=== PATIENT | female | born 1980 | race Caucasian/White ===

== ENCOUNTER → 2016-04-18 | Outpatient (CLI) | payer OTHER ==
[~2016-04-18] MED LIST: AMOX500T3 PO; AMPH10TA2 PO; AMPH20TA2 PO; BUPR-102 PO; BUPR-79 PO; CHLO100T8 PO; CHLO1TAB45 PO; CLC100 PO; DIAZ2TAB PO; DPKSR/500 PO; DRGTP25 EXT; HYDR-4079 PO; MELO15TA4 PO; MRLP527 PO; NRN600 PO; ONDA-63 PO; ONDA8TAB6 PO; PRED10TA PO; PROP20TA67 PO; SNG10 PO; TIZA4CAP PO; TRAZ50TA35 PO; VARE1PAK15 PO; VLM5CL PO; VNTHFA/IN INH; ZOLP10TA PO; ZOLP10TA6 PO; [UNRECOGNIZED DRUG - CODE] PO; [UNRECOGNIZED DRUG - CODE] PO; [UNRECOGNIZED DRUG - CODE] PO
[2016-04-18 16:56] LABS: BASO % 0.2 %; BASO ABS # 0.01 K/uL (0-0.2); COMPLETE YES; HEMATOCRIT 39.3 % (37-47); LYMPH % 35.8 %; LYMPH ABS # 1.92 K/uL (1.2-3.4); MEAN CELL VOLUME 86.2 fL (80-100); MEAN CORPUSCULAR HEMOGLOBIN 29.2 pg (25-34); MEAN CORPUSCULAR HGB CONC 33.8 g/dl (32-36); MEAN PLATELET VOLUME 11.6 fL (7.4-10.4); MONO % 6.5 %; NEUT % 57.5 %; PLATELET COUNT 211 K/uL (130-400); RED BLOOD COUNT 4.56 M/uL (4.2-5.4); WHITE BLOOD COUNT 5.36 K/uL (4.8-10.8)
[2016-04-18 17:09] LABS: ALT/SGPT 16 U/L (12-78); BLOOD UREA NITROGEN 10 mg/dl (7-18); BUN/CREATININE RATIO 11.4 (10-20); CALCIUM 9.1 mg/dl (8.5-10.1); CARBON DIOXIDE 25 mmol/L (21-32); CHLORIDE 101 mmol/L (98-107); GLUCOSE 98 mg/dl (70-99); POTASSIUM 4.1 mmol/L (3.5-5.1); SODIUM 136 mmol/L (136-145)
[2016-04-18 17:12] LABS: ALB/GLOB RATIO 1.2 (0.9-2); ALKALINE PHOSPHATASE 55 U/L (45-117); AST/SGOT 12 U/L (15-37)
== END | disposition home or self-care (01) ==
LOC: C.LABBFT 03-23 14:56
PROVIDERS: ATTEND Psychiatry & Neurology Psychiatry
DX: F31.9 Bipolar disorder, unspecified (principal)

== ENCOUNTER → 2016-07-24 | Outpatient (CLI) | payer OTHER ==
[~2016-07-24] MED LIST changes: +BUPR1SUB23 PO; +CLON0.1T12 PO; +DOCU-94 PO; +HLD5 PO; +NICO21DI4 TD; +PXL20 PO; +SIME1CAP37
[2016-07-24 15:02] LABS: URINE APPEARANCE CLEAR (CLEAR); URINE BILIRUBIN NEG (NEG); URINE COLOR YELLOW; URINE NITRITE NEG (NEG); URINE SPECIFIC GRAVITY 1.011 (1.000-1.030); UROBILINOGEN NEG (NEG)
[2016-07-24 15:06] LABS: MANUAL MICROSCOPIC REQUIRED? NO; REVIEW REQ? NO
== END | disposition home or self-care (01) ==
LOC: C.LAB1850 13:17
PROVIDERS: ATTEND Internal Medicine
DX: R39.9 Unspecified symptoms and signs involving the genitourinary system (principal)

== ENCOUNTER 2016-07-29 17:14 | Emergency (ER) | payer OTHER ==
[~2016-07-29] VITALS: Ht 172.7 cm; Wt 81.4 kg
[~2016-07-29 17:14] MED LIST changes: -AMOX500T3 PO; -AMPH20TA2 PO; -BUPR-102 PO; -BUPR-79 PO; -BUPR1SUB23 PO; -CHLO1TAB45 PO; -CLC100 PO; -CLON0.1T12 PO; -DOCU-94 PO; -DPKSR/500 PO; -HLD5 PO; -MELO15TA4 PO; -MRLP527 PO; -NICO21DI4 TD; -NRN600 PO; -ONDA-63 PO; -PRED10TA PO; -PROP20TA67 PO; -PXL20 PO; -SIME1CAP37; -SNG10 PO; -TRAZ50TA35 PO; -VARE1PAK15 PO; -VLM5CL PO; -VNTHFA/IN INH; -ZOLP10TA PO; -[UNRECOGNIZED DRUG - CODE] PO
[2016-07-29 17:20] VITALS: TEMP 37.4; Ht 172.7 cm; Wt 81.4 kg
--- NOTE | 2016-07-29 17:51 | DIAGNOSTIC IMAGING REPORT ---
CHEST ONE VIEW PORTABLE CLINICAL HISTORY: Fever, sepsis, difficulty breathing COMPARISON STUDY: 11-16 FINDINGS: The cardiac and mediastinal contours are normal. There is no evidence of focal pulmonary consolidation. There is no evidence of failure. No pleural effusions are visualized.[ IMPRESSION: No active disease in the chest. Electronically signed by: Xander George M.D. 07/29/2016 5:50 PM Dictated Date/Time: 07/29/2016 5:49 PM
[2016-07-29] MEDS ORDERED: PROP20TA67 PO (18:01)
[2016-07-29] MEDS ORDERED: SNG10 PO (18:01)
[2016-07-29] MEDS ORDERED: MELO15TA4 PO (18:01)
[2016-07-29] MEDS ORDERED: [UNRECOGNIZED DRUG - CODE] PO (18:01)
[2016-07-29] MEDS ORDERED: CLC100 PO (18:01)
[2016-07-29] MEDS ORDERED: CHLO1TAB45 PO (18:01)
[2016-07-29] MEDS ORDERED: TRAZ50TA35 PO (18:01)
[2016-07-29] MEDS ORDERED: VARE1PAK15 PO (18:01)
[2016-07-29] MEDS ORDERED: VLM5CL PO (18:01)
[2016-07-29] MEDS ORDERED: BUPR-102 PO (18:04)
[2016-07-29] MEDS ORDERED: ONDA-63 PO (18:06)
[2016-07-29 18:07] LABS: BASO % 0.2 %; BASO ABS # 0.02 K/uL (0-0.2); COMPLETE YES; HEMATOCRIT 37.9 % (37-47); IG% 0.1 %; LYMPH % 32.6 %; LYMPH ABS # 2.63 K/uL (1.2-3.4); MEAN CELL VOLUME 85.2 fL (80-100); MEAN CORPUSCULAR HEMOGLOBIN 29.9 pg (25-34); MEAN CORPUSCULAR HGB CONC 35.1 g/dl (32-36); MEAN PLATELET VOLUME 10.3 fL (7.4-10.4); MONO % 5.7 %; NEUT % 61.4 %; PLATELET COUNT 255 K/uL (130-400); RED BLOOD COUNT 4.45 M/uL (4.2-5.4); WHITE BLOOD COUNT 8.06 K/uL (4.8-10.8)
[2016-07-29 18:22] LABS: BLOOD UREA NITROGEN 13 mg/dl (7-18); CALCIUM 9.7 mg/dl (8.5-10.1); CARBON DIOXIDE 26 mmol/L (21-32); CHLORIDE 106 mmol/L (98-107); GLUCOSE 87 mg/dl (70-99); POTASSIUM 4.1 mmol/L (3.5-5.1); SODIUM 141 mmol/L (136-145)
--- NOTE | 2016-07-29 19:26 | EMERGENCY ROOM VISIT NOTE ---
History Report prepared by Julisa: Ozzie Fernando Under the Supervision of: Dr. Anuel Rider D.O. First contact with patient: 17:29 Chief Complaint: ILLNESS Stated Complaint: HARD TO GET FULL BREATH,HEAVY CHEST,ACHY BODY History of Present Illness The patient is a 36 year old female who presents to the Emergency Room with complaints of constant chest heaviness beginning a couple days prior to arrival. She currently rates her discomfort as a 7/10 in severity. The patient complains of body aches with today's symptoms. She states she has difficulty achieving a full breath. The patient notes she smokes 3/4 of a pack of cigarettes a day, and she is on Chantix to quit. She states she has a history of fibromyalgia. 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 Review of Systems See HPI for pertinent positives & negatives. A total of 10 systems reviewed and were otherwise negative. Past Medical & Surgical Medical Problems: (1) Abnormal liver function tests (2) Bipolar II disorder (3) Bowel obstruction (4) Depression (5) Fibromyalgia (6) Generalized anxiety disorder (7) History of nephrolithiasis (8) Migraine (9) polysubstance abuse Surgical Problems: (1) S/P cholecystectomy (2) Status post cholecystectomy (3) Status post tubal ligation Family History Psychiatric condition Social History Smoking Status: Current Every Day Smoker Alcohol Use: none Drug Use: none Marital Status: Housing Status: lives with family Occupation Status: employed Current/Historical Medications Scheduled Amphetamine-Dextroamphetamine 10MG (Adderall 10MG), 15 MG PO BID Bupropion Hcl (Smoking [place] (Bupropion Hcl Sr), 150 MG PO Q12 Chlorpromazine Hcl (Thorazine), 100 MG PO BID Chlorpromazine Hcl (Thorazine), 200 MG PO HS Divalproex Sodium (Depakote Etended-Release), 500 MG PO BID Gabapentin (Gabapentin), 600 MG PO TID Meloxicam (Meloxicam), 15 MG PO DAILY Montelukast Sod (Montelukast Sodium), 10 MG PO HS Propranolol (Inderal), 20 MG PO DAILY Trazodone Hcl (Trazodone), 50 MG PO HS Varenicline Tartrate (Chantix Starting Month Pa), 1 DOSE PO UD Scheduled PRN Diazepam (Diazepam), 5 MG PO BID PRN for Anxiety Docusate Sodium (Docusate Sodium), 100 MG PO BID PRN for Constipation Ondansetron (Ondansetron HCl), 8 MG PO Q8 PRN for Nausea Polyethylene (Polyethylene Glycol 3350), 17 GM PO QAM PRN for Constipation Zaleplon (Zaleplon), 5 MG PO HS PRN for Sleep Allergies Coded Allergies: Adhesives (Verified Allergy, Mild, RASH, 03/09/16) Shellfish (Verified Adverse Reaction, Mild, NAUSEA, 03/09/16) Physical Exam Vital Signs Date Time Temp Pulse Resp B/P Pulse Ox O2 Delivery O2 Flow Rate FiO2 07/29/16 18:28 80 07/29/16 17:20 37.4 100 18 160/101 100 Room Air Physical Exam CONSTITUTIONAL/VITAL SIGNS: Reviewed / noted above. GENERAL: Non-toxic in appearance. INTEGUMENTARY: Warm, dry, and [place]. HEAD: Normocephalic. EYES: without scleral icterus or trauma. ENT/OROPHARYNX: clear and moist. LYMPHADENOPATHY/NECK: Is supple without lymphadenopathy or meningismus. RESPIRATORY: Lungs clear and equal. CARDIOVASCULAR: Regular rate and rhythm. GI/ABDOMEN: Soft and nontender. No organomegaly or pulsatile mass. No rebound or guarding. Normal bowel sounds. EXTREMITIES: Warm and well perfused. BACK: No CVA tenderness. NEUROLOGICAL: Intact without focal deficits. PSYCHIATRIC: normal affect. MUSCULOSKELETAL: Normally developed with good muscle tone. Medical Decision & Procedures ER Provider Diagnostic Interpretation: X ray results and stated below per my interpretation and radiology interpretation. CHEST ONE VIEW PORTABLE CLINICAL HISTORY: Fever, sepsis, difficulty breathing COMPARISON STUDY: 02-07 FINDINGS: The cardiac and mediastinal contours are normal. There is no evidence of focal pulmonary consolidation. There is no evidence of failure. No pleural effusions are visualized.[ IMPRESSION: No active disease in the chest. Electronically signed by: Xander George M.D. 07/29/2016 5:50 PM Laboratory Results 07/29/16 17:50 Red Blood Count 4.45, Mean Corpuscular Volume 85.2, Mean Corpuscular Hemoglobin 29.9, Mean Corpuscular Hemoglobin Concent 35.1, Mean Platelet Volume 10.3, Neutrophils (%) (Auto) 61.4, Lymphocytes (%) (Auto) 32.6, Monocytes (%) (Auto) 5.7, Eosinophils (%) (Auto) 0.0, Basophils (%) (Auto) 0.2, Neutrophils # (Auto) 4.94, Lymphocytes # (Auto) 2.63, Monocytes # (Auto) 0.46, Eosinophils # (Auto) 0.00, Basophils # (Auto) 0.02 07/29/16 17:50 Test 07/29/16 17:50 White Blood Count 8.06 K/uL (4.8-10.8) Red Blood Count 4.45 M/uL (4.2-5.4) Hemoglobin 13.3 g/dL (12.0-16.0) Hematocrit 37.9 % (37-47) Mean Corpuscular Volume 85.2 fL (80-100) Mean Corpuscular Hemoglobin 29.9 pg (25-34) Mean Corpuscular Hemoglobin Concent 35.1 g/dl (32-36) Platelet Count 255 K/uL (130-400) Mean Platelet Volume 10.3 fL (7.4-10.4) Neutrophils (%) (Auto) 61.4 % Lymphocytes (%) (Auto) 32.6 % Monocytes (%) (Auto) 5.7 % Eosinophils (%) (Auto) 0.0 % Basophils (%) (Auto) 0.2 % Neutrophils # (Auto) 4.94 K/uL (1.4-6.5) Lymphocytes # (Auto) 2.63 K/uL (1.2-3.4) Monocytes # (Auto) 0.46 K/uL (0.11-0.59) Eosinophils # (Auto) 0.00 K/uL (0-0.5) Basophils # (Auto) 0.02 K/uL (0-0.2) RDW Standard Deviation 39.6 fL (36.4-46.3) RDW Coefficient of Variation 12.7 % (11.5-14.5) Immature Granulocyte % (Auto) 0.1 % Immature Granulocyte # (Auto) 0.01 K/uL (0.00-0.02) D-Dimer 460 ug/L FEU (0-500) Anion Gap 9.0 mmol/L (3-11) Est Creatinine Clear Calc Drug Dose 87.0 ml/min Estimated GFR () 83.9 Estimated GFR (Non- 72.4 BUN/Creatinine Ratio 13.0 (10-20) Calcium Level 9.7 mg/dl (8.5-10.1) Troponin I < 0.015 ng/ml (0-0.045) Lipase 142 U/L (73-393) Laboratory results as stated above per my review. ECG Indication: chest pain Rate (beats per minute): 95 Rhythm: normal sinus Findings: no ectopy, other (no acute injury) ED Course 172: Previous medical records were reviewed. The patient was evaluated in room B7. A complete history and physical examination was performed. 192: On reevaluation, the patient is doing well. I discussed the results and findings with the patient. She verbalized agreement of the treatment plan. The patient was discharged home. Medical Decision the differential was considered includes acute myocardial infarction, acute coronary syndrome, myocarditis, pericarditis, pericardial effusions /tamponad, esophageal perforation, thoracic aortic dissection, pulmonary embolism, pneumonia, pneumothorax, pancreatitis, shingles, acute cholecystitis, perforated abdominal viscus. This is a 36-year-old female who presents to the ED with a chief complaint of heaviness and tightness in her chest as well as some achiness. She also has some shortness of breath. Her symptoms started earlier today. Her vital signs are stable. She is slightly hypertensive. Physical exam was unremarkable. She reports a history of fibromyalgia. CBC and complete metabolic panel are normal. Troponin and d-dimer are negative. Chest x-ray was negative for acute disease. The patient was told the results. She did not require medication. She is felt to be stable for discharge. Impression Primary Impression: Retrosternal chest pain Additional Impression: Dyspnea Scribe Attestation The scribe's documentation has been prepared under my direction and personally reviewed by me in its entirety. I confirm that the note above accurately reflects all work, treatment, procedures, and medical decision making performed by me. Departure Information Dispostion Home / Self-Care Referrals RV. Ernandez MD (PCP) Forms HOME CARE DOCUMENTATION FORM, IMPORTANT VISIT INFORMATION, WORK / SCHOOL INSTRUCTIONS Patient Instructions My [facility] Additional Instructions Follow-up with your doctor for further care and evaluation in 1-2 days. Return to the emergency department for worsening or new symptoms or any concerns. You have been examined and treated today on an emergency basis only. This is not a substitute for, or an effort to provide, complete comprehensive medical care. It is impossible to recognize and treat all injuries or illnesses in a single emergency department visit. It is therefore important that you follow up closely with your doctor. Call as soon as possible for an appointment. Problem Qualifiers
[2016-07-29 19:34] VITALS: BP 151/92; PULSE 84; O2SAT 100
[2016-07-29] MEDS ORDERED: CHLO100T8 PO (21:36)
[2016-07-29] MEDS ORDERED: MRLP527 PO (22:31)
[2016-07-29] MEDS ORDERED: NRN600 PO (22:31)
[2016-07-29] MEDS ORDERED: DPKSR/500 PO (23:48)
== END 2016-07-29 19:35 | disposition home or self-care (01) ==
LOC: C.EDB 17:15
DX: R07.2 Precordial pain (principal); R06.00 Dyspnea, unspecified; F31.9 Bipolar disorder, unspecified; K56.60 Unspecified intestinal obstruction; F41.1 Generalized anxiety disorder; F17.200 Nicotine dependence, unspecified, uncomplicated; Z90.49 Acquired absence of other specified parts of digestive tract; Z98.51 Tubal ligation status; Z79.899 Other long term (current) drug therapy; Z91.018 Allergy to other foods

== ENCOUNTER → 2016-08-08 | Outpatient (CLI) | payer OTHER ==
[~2016-08-08] VITALS: Ht 172.7 cm; Wt 84.5 kg
[~2016-08-08] MED LIST changes: +AMOX500T3 PO; +AMPH20TA2 PO; +BUPR-102 PO; +BUPR-79 PO; +BUPR1SUB23 PO; +CHLO1TAB45 PO; +CLC100 PO; +CLON0.1T12 PO; -DIAZ2TAB PO; +DOCU-94 PO; +DPKSR/500 PO; -DRGTP25 EXT; +HLD5 PO; -HYDR-4079 PO; +MELO15TA4 PO; +MRLP527 PO; +NICO21DI4 TD; +NRN600 PO; +ONDA-63 PO; -ONDA8TAB6 PO; +PRED10TA PO; +PROP20TA67 PO; +PXL20 PO; +SIME1CAP37; +SNG10 PO; -TIZA4CAP PO; +TRAZ50TA35 PO; +VARE1PAK15 PO; +VLM5CL PO; +VNTHFA/IN INH; +ZOLP10TA PO; -ZOLP10TA6 PO; +[UNRECOGNIZED DRUG - CODE] PO; -[UNRECOGNIZED DRUG - CODE] PO; -[UNRECOGNIZED DRUG - CODE] PO
[2016-08-08 12:26] VITALS: BP 104/71; PULSE 91; Ht 172.7 cm; Wt 84.5 kg
== END | disposition home or self-care (01) ==
LOC: C.NEUR 09:36
PROVIDERS: ATTEND Internal Medicine Pulmonary Disease
DX: G47.00 Insomnia, unspecified (principal); M79.7 Fibromyalgia; F31.9 Bipolar disorder, unspecified

== ENCOUNTER → 2016-08-27 | Outpatient (CLI) | payer OTHER ==
[2016-08-29 06:35] LABS: CHLAMYDIA TRACH RNA*** NOT DETECTED (NOT DETECTED); GC (NEIS GONORRHOEAE)RNA** NOT DETECTED (NOT DETECTED); TRICHOMONAS VAGINALIS RNA** NOT DETECTED (NOT DETECTED)
== END | disposition home or self-care (01) ==
LOC: C.LABSPEC 10:53
PROVIDERS: ATTEND Obstetrics & Gynecology
DX: N76.0 Acute vaginitis (principal)

== ENCOUNTER → 2016-09-23 | Outpatient (CLI) | payer OTHER ==
[~2016-09-23] MED LIST changes: -HLD5 PO; -NICO21DI4 TD; -PXL20 PO
--- NOTE | 2016-09-23 14:42 | DIAGNOSTIC IMAGING REPORT ---
KUB CLINICAL HISTORY: Nephrolithiasis. FINDINGS: 2 AP supine abdominal radiographs are compared to study dated 03/13/2016 and correlated with abdominal CT dated 01/09/2016. There is a nonobstructed abdominal bowel gas pattern noting moderate constipation. Cholecystectomy clips are noted. There is no radiographic evidence of nephrolithiasis on today's examination. The renal shadows are largely obscured by overlying colonic contents. No calcifications project over the ureters. The bony structures appear intact. IMPRESSION: 1. There is no radiographic evidence of nephrolithiasis on today's examination. 2. Moderate constipation. Electronically signed by: Mohan Alba M.D. 09/23/2016 2:40 PM Dictated Date/Time: 09/23/2016 2:39 PM
== END | disposition home or self-care (01) ==
LOC: C.RAD 14:10
PROVIDERS: ATTEND Nurse Practitioner Family
DX: N20.0 Calculus of kidney (principal); K59.00 Constipation, unspecified

== ENCOUNTER → 2016-09-24 | Outpatient (CLI) | payer OTHER | END | disposition home or self-care (01) | LOC: C.PATHSPEC 17:13 | PROVIDERS: ATTEND Nurse Practitioner Adult Health | DX: R31.29 Other microscopic hematuria (principal) ==

== ENCOUNTER → 2016-10-08 | Outpatient (CLI) | payer OTHER ==
[~2016-10-08] MED LIST changes: +HLD5 PO; +NICO21DI4 TD; +OPTIRAY 320 IV PRN; +PXL20 PO
--- NOTE | 2016-10-08 12:32 | DIAGNOSTIC IMAGING REPORT ---
ABD/PELVIS COMBO CLINICAL HISTORY: 36 years-old Female presenting with microhematuria, history of lithotripsy in 2016, history of nephrolithiasis. TECHNIQUE: Multidetector CT of the abdomen and pelvis was performed before and after the administration of intravenous contrast. IV contrast: 119 mL of Omnipaque 320. COMPARISON: 01/09/2016. CT DOSE: The estimated cumulative dose is 1112.14 mGycm. 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 Lung bases: Minimal dependent changes likely atelectasis. Normal heart size. No pericardial or pleural effusion. Liver: Normal morphology. No liver lesion. Patent hepatic vasculature. Biliary: Mild intrahepatic and extrahepatic biliary ductal dilatation likely due to reservoir effect in the post cholecystectomy state. Gallbladder surgically absent. Pancreas: Normal. Spleen: Small subcentimeter hypodensity at the anterior spleen, indeterminate but likely benign lesion such as hamartoma or hemangioma. Adrenal glands: Normal. Kidneys and ureters: Punctate hyperdensity in the right kidney measuring 2 mm, consistent with nonobstructing renal calculus. No hydronephrosis. Normal ureters. Gastrointestinal tract: Mild wall thickening of the distal rectum, which may be due to underdistention. No bowel obstruction. Peritoneal cavity: No free fluid or intraperitoneal gas. Bladder: Incompletely evaluated secondary to underdistention. Pelvic organs: Uterus and ovaries normal. Vasculature: Aorta and IVC patent and normal in caliber. Lymph nodes: No enlarged lymph nodes in the abdomen or pelvis. Abdominal wall: Normal. Musculoskeletal: Normal. IMPRESSION: 1. Nonobstructing 2 mm calculus in the right kidney. No hydronephrosis or hydroureter. Electronically signed by: José Miguel Vera M.D. 10/08/2016 12:31 PM Dictated Date/Time: 10/08/2016 12:24 PM
== END | disposition home or self-care (01) ==
LOC: C.CTS 10:57
PROVIDERS: ATTEND Nurse Practitioner Adult Health
DX: R31.29 Other microscopic hematuria (principal); N20.0 Calculus of kidney

== ENCOUNTER → 2016-11-29 | Outpatient (CLI) | payer OTHER ==
[~2016-11-29] MED LIST changes: -OPTIRAY 320 IV PRN
== END | disposition home or self-care (01) ==
LOC: C.LABBFT 16:42
PROVIDERS: ATTEND Nurse Practitioner
DX: J02.9 Acute pharyngitis, unspecified (principal)

== ENCOUNTER 2016-12-25 16:05 | Emergency (ER) | payer OTHER ==
[~2016-12-25] VITALS: Ht 172.7 cm; Wt 80.4 kg
[~2016-12-25 16:05] MED LIST changes: -AMOX500T3 PO; -AMPH20TA2 PO; -BUPR-79 PO; -BUPR1SUB23 PO; -CLON0.1T12 PO; -DOCU-94 PO; -HLD5 PO; -NICO21DI4 TD; -PRED10TA PO; -PXL20 PO; -SIME1CAP37; -VNTHFA/IN INH; -ZOLP10TA PO
[2016-12-25 16:21] VITALS: TEMP 37.1; Ht 172.7 cm; Wt 80.4 kg
[2016-12-25] MEDS ORDERED: hydrOXYzine HCL 25 MG TAB PO STA (18:48)
[2016-12-25] MEDS ORDERED: COUGH DROP (SUGAR FREE) LOZ 24 LOZ/1 BOX PO STA (18:48)
[2016-12-25] MEDS ORDERED: IBUPROFEN 200 MG TAB PO STA (18:48)
[2016-12-25] MEDS ORDERED: ACETAMINOPHEN 500 MG TAB PO STA (18:48)
[2016-12-25] MEDS ORDERED: SODIUM CHLORIDE 0.9% 1000ML 1,000 ML IV STA (18:48)
[2016-12-25] MEDS ORDERED: ONDANSETRON 4MG OD TAB PO ONE (19:00)
[2016-12-25 19:03] VITALS: O2SAT 99
[2016-12-25 19:12] LABS: BASO % 0.1 %; BASO ABS # 0.01 K/uL (0-0.2); COMPLETE YES; HEMATOCRIT 42.5 % (37-47); IG% 0.3 %; LYMPH % 21.1 %; LYMPH ABS # 1.82 K/uL (1.2-3.4); MEAN CELL VOLUME 88.5 fL (80-100); MEAN CORPUSCULAR HEMOGLOBIN 30.2 pg (25-34); MEAN CORPUSCULAR HGB CONC 34.1 g/dl (32-36); MONO % 6.1 %; NEUT % 72.4 %; PLATELET COUNT 320 K/uL (130-400); WHITE BLOOD COUNT 8.64 K/uL (4.8-10.8)
--- NOTE | 2016-12-25 19:24 | DIAGNOSTIC IMAGING REPORT ---
SINGLE VIEW CHEST CLINICAL HISTORY: Dyspnea. FINDINGS: 2 AP, portable, upright chest radiographs are compared to study dated 07/29/2016 and correlated with chest CT dated 05/25/2014. The examination is degraded by portable technique and patient rotation. The cardiomediastinal silhouette is unremarkable. The lungs and pleural spaces are clear. No pneumothorax is seen. The bony thorax is grossly intact. Cholecystectomy clips are noted in the right upper quadrant. IMPRESSION: No active disease in the chest. Electronically signed by: Mohan Alba M.D. 12/25/2016 7:23 PM Dictated Date/Time: 12/25/2016 7:22 PM
[2016-12-25 19:33] LABS: ALT/SGPT 13 U/L (12-78); BLOOD UREA NITROGEN 11 mg/dl (7-18); BUN/CREATININE RATIO 11.3 (10-20); CARBON DIOXIDE 22 mmol/L (21-32); CHLORIDE 106 mmol/L (98-107); GLUCOSE 97 mg/dl (70-99); POTASSIUM 4.1 mmol/L (3.5-5.1); SODIUM 136 mmol/L (136-145)
[2016-12-25 19:38] LABS: ALKALINE PHOSPHATASE 64 U/L (45-117); AST/SGOT 11 U/L (15-37)
--- NOTE | 2016-12-25 19:40 | EMERGENCY ROOM VISIT NOTE ---
History Report prepared by Julisa: Darian Barnes Under the Supervision of: Dr. Benson Vasquez M.D. First contact with patient: 18:18 Chief Complaint: RESPIRATORY PROBLEMS Stated Complaint: BRONCHITIS, SWEATING, CAN'T BREATHE Nursing Triage Summary: I have been cough, chills, for the past several days. I went to 2 walk in clinics and they told me I have bronchitis History of Present Illness The patient is a 36 year old white female with a past medical history of fibromyalgia, hernia, cholecystectomy, kidney stones, pneumonia, bronchitis, and tremors who presents to the ED with a cc of worsening respiratory problems beginning two days ago. Positive fever, chills, runny nose, coughing up clear mucous, and diarrhea. Negative swelling in her legs, recent car travels, hx of blood clots, and alcohol or tobacco use. She recently thought she had a UTI so she is taking Cipro, and then she thought she had a yeast infection. She went to a walking in clinic two days ago, and was diagnosed with bronchitis and given albuterol. She then went back today and was given prednisone and amoxicillin. No one else is sick around her, and she has not gotten her flu shot , Her LNMP was seven days ago. Source of History: patient Onset: two days ago Position: other (global) Quality: other (respiratory problems) Timing: worsening Associated Symptoms: + fevers, + chills, + cough, + diarrhea Review of Systems See HPI for pertinent positives and negatives. A total of ten systems were reviewed and were otherwise negative. Past Medical & Surgical Medical Problems: (1) Abnormal liver function tests (2) Bipolar II disorder (3) Bowel obstruction (4) Depression (5) Fibromyalgia (6) Generalized anxiety disorder (7) History of nephrolithiasis (8) Migraine (9) polysubstance abuse Surgical Problems: (1) S/P cholecystectomy (2) Status post cholecystectomy (3) Status post tubal ligation Family History Psychiatric condition Social History Smoking Status: Current Every Day Smoker Alcohol Use: none Drug Use: none Marital Status: Housing Status: lives with family Occupation Status: employed Current/Historical Medications Scheduled Amoxicillin (Amoxil), 500 MG PO TID Amphetamine-Dextroamphetamine 20MG (Adderall 20MG), 20 MG PO TID Bupropion (Wellbutrin Sr), 150 MG PO BID Prednisone Tab (Prednisone), 10 MG PO TID Propranolol (Inderal), 20 MG PO BID Zolpidem Tartrate (Ambien), 10 MG PO HS Scheduled PRN Albuterol Hfa (Ventolin Hfa), 2-4 PUFFS INH Q6H PRN for SOB/Wheezing Allergies Coded Allergies: Adhesives (Verified Allergy, Mild, RASH, 12/25/16) Shellfish (Verified Adverse Reaction, Mild, NAUSEA, 12/25/16) Physical Exam Vital Signs Date Time Temp Pulse Resp B/P (MAP) Pulse Ox O2 Delivery O2 Flow Rate FiO2 12/25/16 20:55 84 20 136/73 98 Room Air 12/25/16 19:17 91 12/25/16 19:03 99 Room Air 12/25/16 18:30 93 12 151/102 100 Room Air 12/25/16 18:30 98 Room Air 12/25/16 18:15 100 18 142/104 97 Room Air 12/25/16 16:21 37.1 86 18 128/81 100 Room Air Physical Exam GENERAL: Awake, alert, mildly anxious-appearing and tearful, NAD HENT: Normocephalic, atraumatic. EYES: Normal conjunctiva. Sclera non-icteric. NECK: Supple. No nuchal rigidity. FROM. RESPIRATORY: CTAB, no rhonchi, wheezing, crackles CARDIAC: Tachycardic and regular, no MRG ABDOMEN: Soft, NTND, BS+ MSK: No chest wall TTP, no LE edema NEURO: GCS 15, CN 2-12 intact, moves all 4s on command SKIN: No rash, petechiae, or jaundice noted. Medical Decision & Procedures ER Provider Diagnostic Interpretation: Radiology results as stated below per my review and radiologist interpretation: SINGLE VIEW CHEST CLINICAL HISTORY: Dyspnea. FINDINGS: 2 AP, portable, upright chest radiographs are compared to study dated 07/29/2016 and correlated with chest CT dated 05/25/2014. The examination is degraded by portable technique and patient rotation. The cardiomediastinal silhouette is unremarkable. The lungs and pleural spaces are clear. No pneumothorax is seen. The bony thorax is grossly intact. Cholecystectomy clips are noted in the right upper quadrant. IMPRESSION: No active disease in the chest. Electronically signed by: Mohan Alba M.D. 12/25/2016 7:23 PM Dictated Date/Time: 12/25/2016 7:22 PM Laboratory Results 12/25/16 19:03 Red Blood Count 4.80, Mean Corpuscular Volume 88.5, Mean Corpuscular Hemoglobin 30.2, Mean Corpuscular Hemoglobin Concent 34.1, Mean Platelet Volume 10.0, Neutrophils (%) (Auto) 72.4, Lymphocytes (%) (Auto) 21.1, Monocytes (%) (Auto) 6.1, Eosinophils (%) (Auto) 0.0, Basophils (%) (Auto) 0.1, Neutrophils # (Auto) 6.25, Lymphocytes # (Auto) 1.82, Monocytes # (Auto) 0.53, Eosinophils # (Auto) 0.00, Basophils # (Auto) 0.01 12/25/16 19:03 Test 12/25/16 19:03 White Blood Count 8.64 K/uL (4.8-10.8) Red Blood Count 4.80 M/uL (4.2-5.4) Hemoglobin 14.5 g/dL (12.0-16.0) Hematocrit 42.5 % (37-47) Mean Corpuscular Volume 88.5 fL (80-100) Mean Corpuscular Hemoglobin 30.2 pg (25-34) Mean Corpuscular Hemoglobin Concent 34.1 g/dl (32-36) Platelet Count 320 K/uL (130-400) Mean Platelet Volume 10.0 fL (7.4-10.4) Neutrophils (%) (Auto) 72.4 % Lymphocytes (%) (Auto) 21.1 % Monocytes (%) (Auto) 6.1 % Eosinophils (%) (Auto) 0.0 % Basophils (%) (Auto) 0.1 % Neutrophils # (Auto) 6.25 K/uL (1.4-6.5) Lymphocytes # (Auto) 1.82 K/uL (1.2-3.4) Monocytes # (Auto) 0.53 K/uL (0.11-0.59) Eosinophils # (Auto) 0.00 K/uL (0-0.5) Basophils # (Auto) 0.01 K/uL (0-0.2) RDW Standard Deviation 42.2 fL (36.4-46.3) RDW Coefficient of Variation 13.0 % (11.5-14.5) Immature Granulocyte % (Auto) 0.3 % Immature Granulocyte # (Auto) 0.03 K/uL (0.00-0.02) Anion Gap 8.0 mmol/L (3-11) Est Creatinine Clear Calc Drug Dose 86.5 ml/min Estimated GFR () 83.9 Estimated GFR (Non- 72.4 BUN/Creatinine Ratio 11.3 (10-20) Calcium Level 10.0 mg/dl (8.5-10.1) Total Bilirubin 0.6 mg/dl (0.2-1) Aspartate Amino Transf (AST/SGOT) 11 U/L (15-37) Alanine Aminotransferase (ALT/SGPT) 13 U/L (12-78) Alkaline Phosphatase 64 U/L (45-117) Troponin I < 0.015 ng/ml (0-0.045) Total Protein 8.7 gm/dl (6.4-8.2) Albumin 4.4 gm/dl (3.4-5.0) Globulin 4.3 gm/dl (2.5-4.0) Albumin/Globulin Ratio 1.0 (0.9-2) Laboratory results reviewed by me Medications Administered Medications (Trade) Dose Ordered Sig/Heri Route Start Time Stop Time Status Last Admin Dose Admin Acetaminophen (Tylenol Tab) 1,000 mg NOW STAT PO 12/25/16 18:48 12/25/16 18:53 DC 12/25/16 19:11 1,000 MG Sodium Chloride 1,000 ml @ 999 mls/hr Q1H1M STAT IV 12/25/16 18:48 12/25/16 19:48 DC 12/25/16 18:48 999 MLS/HR Ondansetron HCl (Zofran Odt) 4 mg ONE ONCE PO 12/25/16 19:00 12/25/16 19:01 DC 12/25/16 19:09 4 MG Ibuprofen (Advil Tab) 400 mg NOW STAT PO 12/25/16 18:48 12/25/16 18:53 DC 12/25/16 19:10 400 MG Menthol (Nice Rickey) 1 rickey NOW STAT PO 12/25/16 18:48 12/25/16 18:53 DC 12/25/16 19:11 1 RICKEY Hydroxyzine HCl (Vistaril Tab) 25 mg NOW STAT PO 10/3/17 18:48 12/25/16 18:53 DC 12/25/16 19:11 25 MG Metoclopramide HCl (Reglan Inj) 10 mg NOW STAT IV 12/25/16 20:10 12/25/16 20:11 DC 12/25/16 20:16 10 MG Diphenhydramine HCl (Benadryl Inj) 25 mg NOW STAT IV 12/25/16 20:10 12/25/16 20:11 DC 12/25/16 20:16 25 MG Propranolol HCl (Inderal Tab) 20 mg ONE STAT PO 12/25/16 20:11 12/25/16 20:12 DC 12/25/16 20:53 20 MG ECG Indication: SOB/dyspnea Rate (beats per minute): 83 Rhythm: normal sinus Findings: no ectopy, other (Normal intervals, normal axis, no STS changes or TWI) ED Course 1817: The patient was evaluated in room C10. A complete history and physical exam was performed. 2049: I reevaluated the patient. Discussed results and discharge instructions: She verbalized understanding and agreement. The patient is ready for discharge. Medical Decision The patient is a 36 year old white female with a past medical history of fibromyalgia, hernia, cholecystectomy, kidney stones, pneumonia, bronchitis, and tremors who presents to the ED with a cc of worsening respiratory problems beginning two days ago. Positive fever, chills, runny nose, coughing up clear mucous, and diarrhea. Negative swelling in her legs, recent car travels, hx of blood clots, and alcohol or tobacco use. Triage Nursing notes reviewed. The patient's presentation and history were concerning for etiologies such as infections, reactive airway disease, pneumonia, pneumothorax, COPD, CHF, cardiac ischemia, pulmonary embolism, musculoskeletal, gastrointestinal, as well as others were entertained. Patient was seen and evaluated at the bedside. Patient was complaining of some generalized viral type symptoms. Patient did have blood work that was completed. Patient's EKG blood work and chest x-ray were fairly unremarkable. Patient received supportive care and improved. Less likely ACS given her unremarkable EKG. Less likely PE as her heart rate improved with medications and fluids in addition to her history and physical. Patient was given strict follow-up, discharge, and return precautions. Patient agreed with plan of care patient was safely discharged home. Medication Reconcilliation Current Medication List: was personally reviewed by me Blood Pressure Screening Patient's blood pressure: Elevated blood pressure Blood pressure disposition: Elevated BP felt to be situational Impression Primary Impression: SOB (shortness of breath) Additional Impression: Viral syndrome Scribe Attestation The scribe's documentation has been prepared under my direction and personally reviewed by me in its entirety. I confirm that the note above accurately reflects all work, treatment, procedures, and medical decision making performed by me. Departure Information Dispostion Home / Self-Care Referrals No Doctor, Assigned (PCP) Forms HOME CARE DOCUMENTATION FORM, IMPORTANT VISIT INFORMATION, WORK / SCHOOL INSTRUCTIONS Patient Instructions ED Dyspnea Shortness of Breath, My [facility] Additional Instructions Please return to the emergency department if you have worsening or recurrent symptoms not amenable to at-home treatment. Please call for a follow-up appointment with her primary care physician. Please take your medications as prescribed. If you have other concerns and/or complaints please feel free to also call your primary care physician's office or return the ED for further evaluation, management, and treatment. You may take 600 mg Ibuprofen every 6 hours as needed for pain with food for no more than 2 consecutive days. You may take tylenol 1000mg every 6 hours as needed for pain. You may take motrin and tylenol separately or at the same time. You have been examined and treated today on an emergency basis only. This is not a substitute for, or an effort to provide, complete comprehensive medical care. It is impossible to recognize and treat all injuries or illnesses in a single emergency department visit. It is therefore important that you follow up closely with [facility]. Call as soon as possible for an appointment. Thank you for your time and consideration. I look forward to speaking with you again soon. Please don't hesitate to call us if you have any questions. Work Instructions Return To Work: 1 day Problem Qualifiers
[2016-12-25] MEDS ORDERED: METOCLOPRAMIDE HCL INJ 5 MG/ML 2 ML VIAL IV STA (20:10)
[2016-12-25] MEDS ORDERED: DiphenhydrAMINE HCL 50 MG/ML VIAL IV STA (20:10)
[2016-12-25] MEDS ORDERED: PROPRANOLOL HCL 20 MG TAB PO STA (20:11)
[2016-12-25 20:55] VITALS: BP 136/73; PULSE 84; O2SAT 98
== END 2016-12-25 21:16 | disposition home or self-care (01) ==
LOC: C.EDB 16:07 → C.EDC 21:16
DX: B34.9 Viral infection, unspecified (principal); R06.02 Shortness of breath; F31.81 Bipolar II disorder; F41.1 Generalized anxiety disorder; K56.609 Unspecified intestinal obstruction, unspecified as to partial versus complete obstruction; Z90.49 Acquired absence of other specified parts of digestive tract; Z98.51 Tubal ligation status; F17.200 Nicotine dependence, unspecified, uncomplicated; Z79.899 Other long term (current) drug therapy; Z91.018 Allergy to other foods; Z91.09 Other allergy status, other than to drugs and biological substances

== ENCOUNTER 2016-12-31 12:19 | Inpatient (IN) | payer OTHER ==
[~2016-12-31] VITALS: Ht 172.7 cm; Wt 80.8 kg
--- NOTE | 2016-12-31 13:10 | EMERGENCY ROOM VISIT NOTE ---
History Report prepared by Julisa: Ester Zaman Under the Supervision of: Dr. Yoni Mena D.O. First contact with patient: 12:46 Chief Complaint: MENTAL HEALTH EVALUATION Stated Complaint: MENTAL HEALTH EVAL,BED SEARCH History of Present Illness The patient is a 36 year old female who presents to the Emergency Room with complaints of intermittent suicidal ideation that began several days ago. The patient states that over the past two years she has been going through a tough time, noting that she has just gone through a divorce in May. She states that she was last evaluated in a psychiatric facility 1 year ago, noting it was at the [facility]. The patient states that all of her psychiatric evaluations have been voluntary. She denies any recent change in medications. The patient states that she called crisis today and was instructed to come to the emergency department for further evaluation and treatment. She states that she has been evaluated at [facility] and [place] in the past for psychiatric reasons. The patient states that she was started on Suboxone 4 days ago for pain management due to her history of fibromyalgia. She additionally states that she was recently started on medications for her hypertension. The patient reports a history of borderline personality disorder. She states that she is a smoker, but denies any drinking or drug use. The patient states that she feels nauseous today. Source of History: patient Onset: several days ago Position: other (global) Quality: other (suicidal ideation) Timing: intermittent Associated Symptoms: + nausea Review of Systems See HPI for pertinent positives & negatives. A total of 10 systems reviewed and were otherwise negative. Past Medical & Surgical Medical Problems: (1) Abnormal liver function tests (2) Bipolar II disorder (3) Bowel obstruction (4) Depression (5) Fibromyalgia (6) Generalized anxiety disorder (7) History of nephrolithiasis (8) Migraine (9) polysubstance abuse Surgical Problems: (1) S/P cholecystectomy (2) Status post cholecystectomy (3) Status post tubal ligation Family History Psychiatric condition Social History Smoking Status: Never Smoker Alcohol Use: none Drug Use: none Marital Status: Housing Status: lives with family Occupation Status: employed Current/Historical Medications Scheduled Amoxicillin (Amoxil), 500 MG PO TID Amphetamine-Dextroamphetamine 20MG (Adderall 20MG), 20 MG PO TID Buprenorphine Hcl-Naloxone Hcl (Suboxone 8-2 Mg), 1 TAB PO BID Bupropion (Wellbutrin Sr), 150 MG PO BID Clonidine Hcl (Catapres), 1 TAB PO BID Prednisone Tab (Prednisone), 10 MG PO TID Propranolol (Inderal), 20 MG PO BID Zolpidem Tartrate (Ambien), 10 MG PO HS Scheduled PRN Albuterol Hfa (Ventolin Hfa), 2-4 PUFFS INH Q6H PRN for SOB/Wheezing Simethicone (Simethicone Extra Strengt 125 mg), for Gas or Constipation Allergies Coded Allergies: Adhesives (Verified Allergy, Mild, RASH, 12/31/16) Shellfish (Verified Adverse Reaction, Mild, NAUSEA, 12/31/16) Physical Exam Vital Signs Date Time Temp Pulse Resp B/P (MAP) Pulse Ox O2 Delivery O2 Flow Rate FiO2 12/31/16 15:25 75 18 134/76 95 Room Air 12/31/16 12:29 36.9 93 18 148/90 93 Room Air Physical Exam GENERAL: Patient is awake, alert, mildly anxious appearing, but comfortable. EYES: The conjunctivae are clear. The pupils are round and reactive. EARS, NOSE, MOUTH AND THROAT: The nose is without any evidence of any deformity. Mucous membranes are moist tongue is midline NECK: The neck is nontender and supple. RESPIRATORY: Normal respiratory effort is noted there is no evidence of wheezing rhonchi or rales CARDIOVASCULAR: Regular rate and rhythm noted there no murmurs rubs or gallops normal S1 normal S2 GASTROINTESTINAL: The abdomen is soft. Bowel sounds are present in all quadrants. Abdomen is nontender MUSCULOSKELETAL/EXTREMITIES: There is no evidence of gross deformity full range of motion is noted in the hips and shoulders SKIN: There is no obvious evidence of any rash. There are no petechiae, pallor or cyanosis noted. NEUROLOGIC: Patient is awake alert and oriented x3 strength is symmetric patellar reflexes are 2+ bilaterally PSYCH: Affect was flat, patient makes poor eye contact, currently admitting to suicidal ideation, but very vague Medical Decision & Procedures Laboratory Results 12/31/16 13:10 Red Blood Count 4.16, Mean Corpuscular Volume 88.7, Mean Corpuscular Hemoglobin 31.3, Mean Corpuscular Hemoglobin Concent 35.2, Mean Platelet Volume 10.1, Neutrophils (%) (Auto) 60.2, Lymphocytes (%) (Auto) 32.2, Monocytes (%) (Auto) 7.0, Eosinophils (%) (Auto) 0.0, Basophils (%) (Auto) 0.3, Neutrophils # (Auto) 4.31, Lymphocytes # (Auto) 2.30, Monocytes # (Auto) 0.50, Eosinophils # (Auto) 0.00, Basophils # (Auto) 0.02 12/31/16 13:10 Test 12/31/16 13:10 12/31/16 13:36 White Blood Count 7.15 K/uL (4.8-10.8) Red Blood Count 4.16 M/uL (4.2-5.4) Hemoglobin 13.0 g/dL (12.0-16.0) Hematocrit 36.9 % (37-47) Mean Corpuscular Volume 88.7 fL (80-100) Mean Corpuscular Hemoglobin 31.3 pg (25-34) Mean Corpuscular Hemoglobin Concent 35.2 g/dl (32-36) Platelet Count 261 K/uL (130-400) Mean Platelet Volume 10.1 fL (7.4-10.4) Neutrophils (%) (Auto) 60.2 % Lymphocytes (%) (Auto) 32.2 % Monocytes (%) (Auto) 7.0 % Eosinophils (%) (Auto) 0.0 % Basophils (%) (Auto) 0.3 % Neutrophils # (Auto) 4.31 K/uL (1.4-6.5) Lymphocytes # (Auto) 2.30 K/uL (1.2-3.4) Monocytes # (Auto) 0.50 K/uL (0.11-0.59) Eosinophils # (Auto) 0.00 K/uL (0-0.5) Basophils # (Auto) 0.02 K/uL (0-0.2) RDW Standard Deviation 40.8 fL (36.4-46.3) RDW Coefficient of Variation 12.7 % (11.5-14.5) Immature Granulocyte % (Auto) 0.3 % Immature Granulocyte # (Auto) 0.02 K/uL (0.00-0.02) Anion Gap 7.0 mmol/L (3-11) Est Creatinine Clear Calc Drug Dose 126.2 ml/min Estimated GFR () 129.8 Estimated GFR (Non- 112.0 BUN/Creatinine Ratio 13.5 (10-20) Calcium Level 9.3 mg/dl (8.5-10.1) Total Bilirubin 0.4 mg/dl (0.2-1) Direct Bilirubin 0.1 mg/dl (0-0.2) Aspartate Amino Transf (AST/SGOT) 11 U/L (15-37) Alanine Aminotransferase (ALT/SGPT) 14 U/L (12-78) Alkaline Phosphatase 51 U/L (45-117) Total Protein 7.3 gm/dl (6.4-8.2) Albumin 3.9 gm/dl (3.4-5.0) Thyroid Stimulating Hormone (TSH) 0.484 uIu/ml (0.300-4.500) Ethyl Alcohol mg/dL < 3.0 mg/dl (0-3) Urine Color YELLOW Urine Appearance CLOUDY (CLEAR) Urine pH 7.0 (4.5-7.5) Urine Specific [place] 1.024 (1.000-1.030) Urine Protein NEG (NEG) Urine Glucose (UA) NEG (NEG) Urine Ketones TRACE (NEG) Urine Occult Blood NEG (NEG) Urine Nitrite NEG (NEG) Urine Bilirubin NEG (NEG) Urine Urobilinogen NEG (NEG) Urine Leukocyte Esterase NEG (NEG) Urine WBC (Auto) 1-5 /hpf (0-5) Urine RBC (Auto) 10-30 /hpf (0-4) Urine Hyaline Casts (Auto) 1-5 /lpf (0-5) Urine Epithelial Cells (Auto) >30 /lpf (0-5) Urine Bacteria (Auto) 1+ (NEG) Urine Test NEG (NEG) Urine Opiates Screen NEG (NEG) Urine Methadone, Qualitative NEG (NEG) Urine Barbiturates NEG (NEG) Urine Phencyclidine (PCP) Level NEG (NEG) Ur Amphetamine/Methamphetamine POS (NEG) MDMA (Ecstasy) Screen POS (NEG) Urine Benzodiazepines Screen NEG (NEG) Urine Cocaine Metabolite NEG (NEG) Urine Marijuana (THC) NEG (NEG) Laboratory results per my review. Medications Administered Medications (Trade) Dose Ordered Sig/Hrei Route Start Time Stop Time Status Last Admin Dose Admin Ondansetron HCl (Zofran Odt) 4 mg ONE ONCE PO 12/31/16 13:30 12/31/16 13:31 DC 12/31/16 13:39 4 MG ED Course 1251: The patient was evaluated in room C3. A complete history and physical examination were performed. 1330: Ordered Zofran Odt 4 mg PO. The patient was moved to for further evaluation and treatment. 1452: I reevaluated the patient and she is going to be evaluated by [facility]. 1728: The patient has been accepted to [facility] for further psychiatric care. Medical Decision Differential diagnosis: Etiologies such as mood disorder, infection, hypoglycemia, electrolyte abnormalities, cardiac sources, intracerebral event, toxicologic, neurologic, as well as others were entertained. Nursing notes reviewed. The patient is a 36-year-old female who presented to emergency department for an evaluation of depression and suicidal ideation. The patient is had multiple stressors recently including problems with the police. The patient is had very significant depression and suicidal ideation. The patient was medically cleared in the emergency department. I discussed her case with the emergency Department mental health clinical case manager. She was evaluated and felt to be a good candidate for [address] [place] [address]. She was evaluated by the delegate from [address] [place] [address] and was admitted to [facility] for further inpatient psychiatric care. The patient was treated with Zofran in the emergency department. She was reevaluated multiple times. Medication Reconcilliation Current Medication List: was personally reviewed by me Blood Pressure Screening Patient's blood pressure: Elevated blood pressure Blood pressure disposition: Elevated BP felt to be situational, Did not require urgent referral Impression Primary Impression: Depression Additional Impressions: Suicidal ideation Anxiety Scribe Attestation The scribe's documentation has been prepared under my direction and personally reviewed by me in its entirety. I confirm that the note above accurately reflects all work, treatment, procedures, and medical decision making performed by me. Departure Information Dispostion Mental Health Acute Care Referrals No Doctor, Assigned (PCP) Patient Instructions My [facility] Problem Qualifiers Primary Impression: Depression Depression Type: unspecified Qualified Codes: F32.9 - Major depressive disorder, single episode, unspecified
[2016-12-31] MEDS ORDERED: BUPR1SUB23 PO (13:13)
[2016-12-31 13:28] LABS: BASO % 0.3 %; BASO ABS # 0.02 K/uL (0-0.2); COMPLETE YES; HEMATOCRIT 36.9 % (37-47); IG% 0.3 %; LYMPH % 32.2 %; MEAN CELL VOLUME 88.7 fL (80-100); MEAN CORPUSCULAR HEMOGLOBIN 31.3 pg (25-34); MEAN CORPUSCULAR HGB CONC 35.2 g/dl (32-36); MEAN PLATELET VOLUME 10.1 fL (7.4-10.4); NEUT % 60.2 %; PLATELET COUNT 261 K/uL (130-400); RED BLOOD COUNT 4.16 M/uL (4.2-5.4); WHITE BLOOD COUNT 7.15 K/uL (4.8-10.8)
[2016-12-31] MEDS ORDERED: ONDANSETRON 4MG OD TAB PO ONE (13:30)
[2016-12-31 13:47] LABS: BUN/CREATININE RATIO 13.5 (10-20); CALCIUM 9.3 mg/dl (8.5-10.1); CREATININE 0.69 mg/dl (0.60-1.20); POTASSIUM 3.3 mmol/L (3.5-5.1)
[2016-12-31 13:57] LABS: THYROID STIMULATING HORMONE 0.484 uIu/ml (0.300-4.500)
[2016-12-31 13:58] LABS: URINE APPEARANCE CLOUDY (CLEAR); URINE BILIRUBIN NEG (NEG); URINE COLOR YELLOW; URINE EPITHELIAL CELL AUTO >30 /lpf (0-5); URINE NITRITE NEG (NEG); URINE SPECIFIC GRAVITY 1.024 (1.000-1.030); UROBILINOGEN NEG (NEG)
[2016-12-31 13:59] LABS: MANUAL MICROSCOPIC REQUIRED? NO; REVIEW REQ? NO
[2016-12-31 14:23] LABS: BENZODIAZEPINE, URINE NEG (NEG); COCAINE,URINE NEG (NEG); PHENCYCLIDINE, URINE NEG (NEG)
[2016-12-31 15:25] VITALS: O2SAT 95
[2016-12-31] MEDS ORDERED: ACETAMINOPHEN 325 MG TAB PO PRN (16:00)
[2016-12-31] MEDS ORDERED: BISMUTH SUBSALICYLATE PER ML OMNICELL CHARGE PO PRN (16:00)
[2016-12-31] MEDS ORDERED: ALUMINUM/MAGNESIUM SUSP 30 ML UDC PO PRN (16:00)
[2016-12-31] MEDS ORDERED: SODIUM CHLORIDE 0.65% NA SOLN 45 ML (OCEAN) PRN (16:00)
[2016-12-31] MEDS ORDERED: MAGNESIUM HYDROXIDE SUSP 30 ML UDC PO PRN (16:00)
[2016-12-31] MEDS ORDERED: ALBUTEROL HFA 8 GM INHALER INH PRN (16:00)
[2016-12-31] MEDS ORDERED: CLON0.1T12 PO (17:52)
[2016-12-31] MEDS ORDERED: SIME1CAP37 (17:52)
[2016-12-31 17:59] VITALS: BP 144/91; PULSE 91; TEMP 36.8; Ht 172.7 cm; Wt 80.8 kg
[2016-12-31] MEDS: BuPROPion SR 150 MG TABCR PO SCH (18:06)
[2016-12-31] MEDS ORDERED: NURSING VERBAL MED ORDER ONE (18:15)
[2016-12-31] MEDS ORDERED: ZOLP10TA PO (18:23)
[2016-12-31] MEDS ORDERED: BUPR-79 PO (18:23)
[2016-12-31] MEDS ORDERED: AMPH20TA2 PO (18:23)
[2016-12-31] MEDS ORDERED: PRED10TA PO (18:23)
[2016-12-31] MEDS ORDERED: PROP20TA67 PO (18:23)
[2016-12-31] MEDS ORDERED: AMOX500T3 PO (18:23)
[2016-12-31] MEDS ORDERED: VNTHFA/IN INH (18:23)
[2016-12-31] MEDS ORDERED: INFLUENZA VIRUS QUAD VACCINE 0.5 ML SYR IM. ONE (18:45)
[2016-12-31] MEDS ORDERED: INFLUENZA ADMINISTRATION CHARGE ONE (18:45)
[2016-12-31] MEDS ORDERED: SIMETHICONE 80 MG CHEW PO PRN (18:45)
[2016-12-31] MEDS: hydrOXYzine HCL 25 MG TAB PO PRN (19:12)
[2016-12-31 19:58] VITALS: BP 127/86; PULSE 85
[2016-12-31] MEDS ORDERED: BUPRENORPHINE/NALOXONE 8/2 MG TAB SL SCH (21:00)
[2016-12-31] MEDS: CLONIDINE HCL 0.1 MG TAB PO SCH (21:03)
[2016-12-31] MEDS: ZOLPIDEM TARTRATE 10 MG TAB PO SCH ×3 (21:03→22:52)
[2016-12-31] MEDS: AMOXICILLIN 500 MG CAP PO SCH (21:03)
[2016-12-31] MEDS: PROPRANOLOL HCL 20 MG TAB PO SCH (21:04)
[2017-01-01] MEDS: hydrOXYzine HCL 25 MG TAB PO PRN ×3 (02:07→18:51)
[2017-01-01 06:57] VITALS: BP_SYST 100; BP_SYST 96; BP_DIAS 60; BP_DIAS 66; PULSE 67; PULSE 77; TEMP 36.7
[2017-01-01] MEDS ORDERED: NAPROXEN 250 MG TAB PO PRN (09:45)
[2017-01-01] MEDS ORDERED: BACITRACIN OINT 15 GM TUBE EXT PRN (09:45)
[2017-01-01] MEDS: CLONIDINE HCL 0.1 MG TAB PO SCH ×2 (09:45→21:25)
[2017-01-01] MEDS: AMOXICILLIN 500 MG CAP PO SCH ×3 (09:45→21:25)
[2017-01-01] MEDS: PROPRANOLOL HCL 20 MG TAB PO SCH ×2 (09:46→21:25)
[2017-01-01] MEDS: BuPROPion SR 150 MG TABCR PO SCH (09:47)
[2017-01-01] MEDS: NICOTINE 21 MG/24 HR TDSY TD SCH (09:48)
[2017-01-01 09:53] VITALS: BP 115/76; PULSE 88
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
[2017-01-01] MEDS ORDERED: HALOPERIDOL 5 MG TAB PO ONE (11:00)
[2017-01-01] MEDS: HALOPERIDOL 5 MG TAB PO PRN ×2 (13:24→17:46)
[2017-01-01] MEDS: HALOPERIDOL 5 MG TAB PO SCH (21:25)
[2017-01-01 21:36] VITALS: BP 108/62; PULSE 59
[2017-01-01] MEDS ORDERED: DOCU-94 PO (22:36)
[2017-01-02] MEDS: hydrOXYzine HCL 25 MG TAB PO PRN ×2 (01:21→21:47)
[2017-01-02 06:46] VITALS: BP_SYST 108; BP_SYST 113; BP_DIAS 68; BP_DIAS 70; PULSE 71; PULSE 99; TEMP 37.1
[2017-01-02] MEDS ORDERED: BuPROPion SR 150 MG TABCR PO SCH (09:00)
[2017-01-02] MEDS: AMOXICILLIN 500 MG CAP PO SCH ×3 (09:52→21:42)
[2017-01-02] MEDS: PAROXETINE 20 MG TAB PO SCH (09:53)
[2017-01-02] MEDS: CLONIDINE HCL 0.1 MG TAB PO SCH ×2 (09:53→21:43)
[2017-01-02] MEDS: PROPRANOLOL HCL 20 MG TAB PO SCH ×2 (09:53→21:43)
[2017-01-02] MEDS: NICOTINE 21 MG/24 HR TDSY TD SCH (09:54)
[2017-01-02] MEDS: HALOPERIDOL 5 MG TAB PO SCH ×2 (09:56→21:43)
[2017-01-02] MEDS ORDERED: POLYETHYLENE (MIRALAX) 17 GM PACK PO PRN (11:00)
--- NOTE | 2017-01-02 11:04 | Psychiatric Progress Notes ---
Progress Note Date of Service Jan 02, 2017. 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 She was admitted on a 201 voluntary commitment. Chief Complaint "Trying to get my meds straight before I go into penitentiary". Subjective Patient was seen & assessed interval progress reviewed with Treatment Team. Staff report the patient continues to request controlled substances, although she has been informed that we will not prescribe them, and is aware she won't be able to get them in penitentiary. She continues to state that she will be going to penitentiary, but wouldn't sign a release for staff to contact the penitentiary to coordinate this. Today she was seen with LUI Valles, with her consent. She states she doesn't feel any different than when she came in, "the Haldol just makes me tired." She c/o constipation since she started Suboxone last week, and says she hasn't had a BM in 3-4 days. She had given herself an enema at home, and takes Miralax at home. She got MOM once here. She says she has been getting prn Haldol , but that it is just making her tired, and is concerned that she can't get a prn in penitentiary, so wants to increase the dose to "clear up my thoughts, slow down my thoughts." She later says it did help calm and slow her thoughts. She reports "bad thoughts, that I don't want to live anymore." She denies a plan or intent to harm herself at this time. She blames her mother for her current situation, saying "she doesn't know how to shut up." She states she has not gone to any groups, as "my head's not there to sit down and talk to anyone." She complains that she is still getting bupropion, and was reminded that it is being tapered off. She wants "something else" for anxiety, but admits that she is sedated, and appears to be falling asleep during the interview. Sleep Information Total Hours of Sleep: 4.00 Meal Information Percent of Breakfast Consumed: 35 Percent of Lunch Consumed: 100 Percent of Dinner Consumed: 100 Mental Status Exam During interview pt is: alert and oriented, cooperative (but a vague and inconsistent historian) Appearance: appropriately dressed (wearing same clothes as yesterday), appropriately groomed Eye contact is: fair Motor behavior is: steady gait & station, psychomotor retardation Speech: normal in rate, rhythm & volume (soft speech) Affect: other (calm, sedated, incongruent with stated mood) Mood is: other ("the same") Thought process: circumstantial Thought content: reality based without delusions Suicidal thought are: denied Homicidal thoughts are: denied Hallucinations: denies auditory, denies visual Cognition: language grossly intact, other (memory and attention are mildly impaired) Intelligence estimated to be: average Insight: impaired Judgement: impaired Impression 36 her old female with a history of personality disorder NOS, bipolar type II, and polysubstance abuse who presented to the emergency room requesting admission for suicidal ideation in the context of legal problems and being informed that she would be incarcerated for violating a PFA. She sees several different outpatient physicians, and is prescribed four different controlled substances, which she recognizes she will not be able to receive in penitentiary. She states she wanted to get her medications adjusted prior to going to penitentiary, and is requesting a different antidepressant and antipsychotic, which is not unreasonable. She has been started on paroxetine and haloperidol, and taken off of controlled substances. She requires inpatient treatment due to the risk for self-harm if discharged. Ideally, she would be released into police custody and then to penitentiary. She tends to look immediately to medications to alleviate any uncomfortable symptom, and continues to ask for controlled substances and sedating medications, even though visibly sedated on exam. Plan (1) Bipolar II disorder 01/01 - Patient has been noncompliant with chlorpromazine, and has been taking unopposed bupropion and Adderall, which has likely contributed to insomnia and destabilization of mood. She is requesting a different antipsychotic, but has tried numerous ones in the past as above. We will start by getting the formulary from [facility] and will review those medications with her. We will taper her off bupropion over the next 2 days. Obtain records from Dr. Umanzor, and call him to coordinate care given concerns about the numerous controlled substance she is prescribed that may be worsening symptoms, and her pending incarceration. Discontinue zolpidem and diazepam, as she will not be able to get these in penitentiary and they're contraindicated given her polysubstance abuse history. Discontinue Adderall, as it is likely contributing to insomnia, anxiety, contraindicated given her addictions history , and she does not have ADHD. - Consider trial of paroxetine once she is on a mood stabilizing medication. Can start 10 milligrams daily tomorrow. Recommend she take chlorpromazine as prescribed by Dr. Umanzor, which was just started within the past week, but she is refusing this, stating that it makes her more angry. It is not clear if she actually filled the recent prescription and took it or not. Reviewed other antipsychotic options available at the penitentiary, including Prolixin, haloperidol, and Depakote, and she requested a trial of Haldol. We will start 2.5 mg every morning and 5 mg daily at bedtime after reviewing risks, benefits, and side effects. I will order benztropine 1 mg prn EPS. - Family meeting with mother. - Encourage group attendance and participation. Work on healthy coping skills and discharge safety plan. - Ideally patient would be discharged directly into police custody, however we do not have documentation of a warranted at this time. She indicates that she will be presenting herself to [facility] after discharge, but plans to go home first. - Referred for forensic case management services. - Coordinate care with all outpatient providers, including Dr. Ervin, Dr. Umanzor, and Dr. Pj Gaytan. Spoke to staff at Dr. Umanzor's office and Dr. Valdez's office to coordinate care. 01/02 - Coordinate with police re: warrant and discharge to penitentiary. - Continue paroxetine 10mg qam and haldol as above. - Patient reminded that controlled substances are not indicated and will not be prescribed here. - Will attempt to balance the use of medications to target mood and anxiety symptoms with her level of sedation, as she repeatedly asks for additional medications, even when clearly sedated. She is asking for an increase in her Haldol dose, but I'm going to continue the current dose of 2.5 mg every morning and 5 mg daily at bedtime for now, as she also has a when necessary dose ordered , and is clearly sedated on exam. She is also refusing groups and spending her days in bed, and was advised that group attendance and participation is expected and is an important part of her treatment. She voiced understanding, but then returned to her room instead of attending group therapy. (2) Personality disorder, unspecified Patient would benefit from ongoing therapy, but has been noncompliant with her outpatient therapist. Keep consistent boundaries. (3) polysubstance abuse Patient with a history of crack cocaine, alcohol, prescription opiate, and benzodiazepine abuse. Would not recommend she be prescribed any controlled substances due to the higher risk of misuse, abuse, and diversion. I will contact her current prescribers to inform them of her pending incarceration and discontinuation of controlled substances. (4) Fibromyalgia Tylenol and naproxen as needed, encourage gentle exercise, use of heating pad, and stretching. (5) Bronchitis Complete course of prednisone and amoxicillin as prescribed by Dr. Pj Gaytan. (6) Nicotine abuse 01/02 - Continue patch and add gum for nicotine cravings. (7) Constipation 01/02 - patient reports constipation over the past week or so since starting Suboxone. She has MOM, and I will add MiraLAX, which she states she takes at home. Could also offer her prune juice, and encourage walking and adequate fluid intake. Discharge / Aftercare Planning Primary Care Physician: Name: Dr Ervin Psychiatrist: Name: Dr Umanzor Pain Clinic: Name: [facility] Visit Code E&M Code: 33546 Inventory Assets Strengths: willing for treatment, has OP psychiatrist Risk Factors Assessment : Yes /single/: Yes Higher / Fall in social status: No Access to guns: No Health problems: Yes Mental Health Diagnoses: Yes Substance use disorders: Yes Previous attempt: No Previous psychiatric stay: Yes Hopelessness: No Smoker: Yes Protective Factors Assessment Advent beliefs: Yes : No Responsible for young children: Yes Employed: No Stable relationships: No Supportive family: Yes (mother) Data Vital Signs Last 24 Hrs: Date Time Temp Pulse Resp B/P (MAP) Pulse Ox O2 Delivery O2 Flow Rate FiO2 01/02/17 06:46 37.1 71 16 108/70 99 113/68 01/01/17 21:36 59 108/62 Meds Administered Last 24 Hrs: Meds Administered (Past 24Hrs) Medications (Trade) Dose Ordered Sig/Heri Route Start Time Stop Time Status Last Admin Dose Admin Ondansetron HCl (Zofran Odt) 4 mg ONE ONCE PO 12/31/16 13:30 12/31/16 13:31 DC 12/31/16 13:39 4 MG Acetaminophen (Tylenol Tab) 650 mg Q4H PRN PO 12/31/16 16:00 01/30/17 15:59 12/31/16 17:46 650 MG Magnesium Hydroxide (Milk Of Magnesia Susp) 30 ml DAILY PRN PO 12/31/16 16:00 01/30/17 15:59 01/01/17 21:33 30 ML Hydroxyzine HCl (Vistaril Tab) 50 mg HSZ PRN PO 12/31/16 16:00 01/30/17 15:59 01/02/17 01:21 50 MG Hydroxyzine HCl (Vistaril Tab) 25 mg Q4H PRN PO 12/31/16 16:00 01/30/17 15:59 01/01/17 18:51 25 MG Nicotine (Nicoderm Cq 21MG Patch) 1 patch QAM TD 01/01/17 09:00 01/31/17 08:59 01/02/17 09:54 1 PATCH Prednisone (PredniSONE TAB) 10 mg TID PO 12/31/16 22:00 02/04/17 21:59 01/02/17 09:54 10 MG Propranolol HCl (Inderal Tab) 20 mg BID PO 12/31/16 22:00 01/30/17 21:59 01/02/17 09:53 20 MG Zolpidem Tartrate (Ambien Tab) 10 mg HS PO 12/31/16 21:00 01/01/17 09:38 DC 12/31/16 22:52 10 MG Amoxicillin (Amoxil Cap) 500 mg TID PO 12/31/16 21:00 01/04/17 23:59 01/02/17 09:52 500 MG Buprenorphine/ Naloxone (Suboxone Tab) 1 tab BID SL 12/31/16 21:00 01/01/17 09:38 DC 12/31/16 21:04 1 TAB Bupropion HCl (Wellbutrin-Sr Tab) 150 mg BID17 PO 12/31/16 17:00 01/01/17 09:41 DC 01/01/17 09:47 150 MG Clonidine HCl (Catapres Tab) 0.1 mg BID PO 12/31/16 22:00 01/30/17 21:59 01/02/17 09:53 0.1 MG Naproxen (Naprosyn Tab) 250 mg BID PRN PO 01/01/17 09:45 01/31/17 09:44 01/01/17 13:23 250 MG Bupropion HCl (Wellbutrin-Sr Tab) 150 mg QAM PO 01/02/17 09:00 01/03/17 08:59 01/02/17 09:54 150 MG Haloperidol (Haldol Tab) 5 mg HS PO 01/01/17 22:00 01/31/17 21:59 01/01/17 21:25 5 MG Haloperidol (Haldol Tab) 5 mg 1100 ONCE PO 01/01/17 11:00 01/01/17 11:01 DC 01/01/17 11:15 5 MG Paroxetine HCl (pAXil TAB) 10 mg QAM PO 01/02/17 09:00 02/01/17 08:59 01/02/17 09:53 10 MG Haloperidol (Haldol Tab) 2.5 mg QAM PO 01/02/17 09:00 02/01/17 08:59 01/02/17 09:56 2.5 MG Haloperidol (Haldol Tab) 2.5 mg Q4H PRN PO 01/01/17 11:30 01/31/17 11:29 01/01/17 17:46 2.5 MG
[2017-01-02] MEDS ORDERED: NICOTINE POLACRILEX 2 MG GUM MT PRN (12:00)
[2017-01-02] MEDS: HALOPERIDOL 5 MG TAB PO PRN (13:16)
[2017-01-02 21:55] VITALS: BP 113/67; PULSE 82
[2017-01-03 06:55] VITALS: BP_SYST 108; BP_SYST 110; BP_DIAS 70; BP_DIAS 72; PULSE 57; PULSE 59; TEMP 36.8
--- NOTE | 2017-01-03 09:13 | Psychiatric Progress Notes ---
Progress Note Date of Service Jan 03, 2017. 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 She was admitted on a 201 voluntary commitment. Chief Complaint "Not good". Subjective Patient was seen & assessed interval progress reviewed with Nursing. Staff report she continues to refuse all groups, and spends her time in bed sleeping. She is eating, and visited with her mother last evening. She signed a release for social science teacher to contact police regarding the warrant for her arrest and to try to get some more information about where she would be doing at discharge. We are awaiting a return call from them today to clarify this. She is requesting when necessary Haldol 1-2 times a day. She has not voiced any suicidal thoughts. Today, she was seen with Xochitl Castro MS3. She states that she is "not good, no energy, bad thoughts." She had agreed to go to groups yesterday when informed that this was important part of her treatment, but did not attend any groups, stating that she has not wanted to get out of bed. She complains that nothing is helping her because she has "no good thoughts," and was advised that medication cannot give her good thoughts, and that she needs to be out of bed and actively participating in her treatment in order to make progress. She was again advised that is part of what she agreed to when she signed in for voluntary treatment, and that medications alone will not be sufficient to help with her symptoms. She continues to ask for more medications, and was advised that I'm reluctant to increase anything as she already appears sedated and is sleeping all day, and that if she is unable to get out of bed and be more active, we may need to consider decreasing her Haldol. She endorses thoughts of not wanting to exist anymore, which is chronic , but denies current plan or intent to harm herself. She states that in the past she has had thoughts of overdosing "on a bunch of pills," and admits that she has many pills at home, as she saves medications even after they're discontinued. She is willing to have a meeting with her mother. Sleep Information Total Hours of Sleep: 8.50 Meal Information Percent of Breakfast Consumed: 35 Percent of Lunch Consumed: 60 Percent of Dinner Consumed: 100 Mental Status Exam During interview pt is: alert and oriented, cooperative (vague and inconsistent historian) Appearance: appropriately dressed (wearing same clothes for the third day in a row), disheveled Eye contact is: fair Motor behavior is: steady gait & station, psychomotor retardation Speech: other (minimal, soft speech) Affect: other (calm, sedated, incongruent with stated mood) Mood is: other ("not good") Thought process: other (vague, sometimes conflicting reports) Thought content: reality based without delusions Suicidal thought are: present (reports thoughts of "not wanting to exist anymore," but denies current plan or intent, although admits has had thoughts of overdosing on her pills in the past) Homicidal thoughts are: denied Hallucinations: denies auditory, denies visual Cognition: language grossly intact, other (memory and attention are mildly impaired) Intelligence estimated to be: average Insight: impaired Judgement: impaired Medication Trials (1) Past Psych Medications per patient, a lot, almost every med out there. Buspar - ineffective Lamictal Latuda Effexor Lexapro Paxil lithium - tremor prolixin trazodone duloxetine Depakote - nausea and hair loss ziprasidone aripiprazole olanzapine - weight gain topamax quetiapine anafranil - sweats and shakes propranolol Ritalin Concerta Adderall chlorpromazine - didn't like it Last Edited By: Adriana Soto on Jan 03, 2017 10:35 Impression 36 her old female with a history of personality disorder NOS ( borderline and antisocial traits), bipolar type II, and polysubstance abuse who presented to the emergency room requesting admission for suicidal ideation in the context of legal problems and being informed that she would be incarcerated for violating a PFA. She sees several different outpatient physicians, and is prescribed four different controlled substances, which she recognizes she will not be able to receive in [facility]. She states she wanted to get her medications adjusted prior to going to [facility], and is requesting a different antidepressant and antipsychotic, which is not unreasonable. She has been started on paroxetine and haloperidol, and taken off of controlled substances. She requires inpatient treatment due to the risk for self-harm if discharged, as she will need to be released directly into police custody and then to [facility], due to the risk of impulsive self-harm to avoid going to [facility], and access to numerous controlled substances and prescription medications at home. She tends to look immediately to medications to alleviate any uncomfortable symptom, and continues to ask for controlled substances and sedating medications, even though visibly sedated on exam. She has refused all groups, even though she's been advised multiple times that this is an important part of her treatment, and is instead spending all of her time in bed. Plan (1) Bipolar II disorder 01/01 - Patient has been noncompliant with chlorpromazine, and has been taking unopposed bupropion and Adderall, which has likely contributed to insomnia and destabilization of mood. She is requesting a different antipsychotic, but has tried numerous ones in the past as above. We will start by getting the formulary from [facility] and will review those medications with her. We will taper her off bupropion over the next 2 days. Obtain records from Dr. Umanzor, and call him to coordinate care given concerns about the numerous controlled substance she is prescribed that may be worsening symptoms, and her pending incarceration. Discontinue zolpidem and diazepam, as she will not be able to get these in [facility] and they're contraindicated given her polysubstance abuse history. Discontinue Adderall, as it is likely contributing to insomnia, anxiety, contraindicated given her addictions history , and she does not have ADHD. - Consider trial of paroxetine once she is on a mood stabilizing medication. Can start 10 milligrams daily tomorrow. Recommend she take chlorpromazine as prescribed by Dr. Umanzor, which was just started within the past week, but she is refusing this, stating that it makes her more angry. It is not clear if she actually filled the recent prescription and took it or not. Reviewed other antipsychotic options available at the [facility], including Prolixin, haloperidol, and Depakote, and she requested a trial of Haldol. We will start 2.5 mg every morning and 5 mg daily at bedtime after reviewing risks, benefits, and side effects. I will order benztropine 1 mg prn EPS. - Family meeting with mother. - Encourage group attendance and participation. Work on healthy coping skills and discharge safety plan. - Ideally patient would be discharged directly into police custody, however we do not have documentation of a warranted at this time. She indicates that she will be presenting herself to [facility] after discharge, but plans to go home first. - Referred for forensic case management services. - Coordinate care with all outpatient providers, including Dr. Ervin, Dr. Umanzor, and Dr. Pj Gaytan. Spoke to staff at Dr. Umanzor's office and Dr. Valdez's office to coordinate care. 01/02 - Coordinate with police re: warrant and discharge to [facility]. - Continue paroxetine 10mg qam and haldol as above. - Patient reminded that controlled substances are not indicated and will not be prescribed here. - Will attempt to balance the use of medications to target mood and anxiety symptoms with her level of sedation, as she repeatedly asks for additional medications, even when clearly sedated. She is asking for an increase in her Haldol dose, but I'm going to continue the current dose of 2.5 mg every morning and 5 mg daily at bedtime for now, as she also has a when necessary dose ordered , and is clearly sedated on exam. She is also refusing groups and spending her days in bed, and was advised that group attendance and participation is expected and is an important part of her treatment. She voiced understanding, but then returned to her room instead of attending group therapy. 01/03 - Patient continues to refuse all groups. She was advised again today that this is an important part of her treatment, and that if she is not actively engaged in treatment, we will pursue discharge. - Continue haloperidol 2.5 mg every morning and 5 mg daily at bedtime and paroxetine 10 mg daily. Consider decreasing Haldol if she continues to stay in bed all day, as it may be excessively sedating. She is asking to increase dose of medications, and this is not appropriate at this time. - Family meeting with mother. Primary goal is to get mother to bring in the patient's medications from home so that they can be safely disposed of, as she indicates she has quite a large stash of them and has had thoughts of overdosing in the past. In particular, the controlled substances she has should be removed and safely disposed of, including Suboxone, diazepam, Adderall , and zolpidem. - linen room worker spoken to the police, who will send the warrant, and will pick her up at discharge. (2) Personality disorder, unspecified Patient would benefit from ongoing therapy, but has been noncompliant with her outpatient therapist. Keep consistent boundaries. (3) polysubstance abuse Patient with a history of crack cocaine, alcohol, prescription opiate, and benzodiazepine abuse. Would not recommend she be prescribed any controlled substances due to the higher risk of misuse, abuse, and diversion. I will contact her current prescribers to inform them of her pending incarceration and discontinuation of controlled substances. (Dr. Umanzor's and Dr. Valdez's offices both contacted and informed of admission and discontinuation of controlled substances). (4) Fibromyalgia Tylenol and naproxen as needed, encourage gentle exercise, use of heating pad, and stretching. (5) Bronchitis Complete course of prednisone and amoxicillin as prescribed by Dr. Pj Gaytan. (6) Nicotine abuse 01/02 - Continue patch and add gum for nicotine cravings. (7) Constipation 01/02 - patient reports constipation over the past week or so since starting Suboxone. She has MOM, and I will add MiraLAX, which she states she takes at home. Could also offer her prune juice, and encourage walking and adequate fluid intake. Discharge / Aftercare Planning Primary Care Physician: Name: Dr Ervin Appointment Notes: As needed Psychiatrist: Name: Dr Umanzor Date of Appointment: Jan 15, 2017 Time of Appointment: 10:00am Pain Clinic: Name: [facility] Visit Code E&M Code: 19334 Inventory Assets Strengths: willing for treatment, has OP psychiatrist Risk Factors Assessment : Yes /single/: Yes Higher / Fall in social status: No Access to guns: No Health problems: Yes Mental Health Diagnoses: Yes Substance use disorders: Yes Previous attempt: No Previous psychiatric stay: Yes Hopelessness: No Smoker: Yes Protective Factors Assessment Voodoo beliefs: Yes : No Responsible for young children: Yes Employed: No Stable relationships: No Supportive family: Yes (mother) Data Vital Signs Last 24 Hrs: Date Time Temp Pulse Resp B/P (MAP) Pulse Ox O2 Delivery O2 Flow Rate FiO2 01/03/17 06:55 36.8 59 16 108/70 57 110/72 01/02/17 21:55 82 113/67 Meds Administered Last 24 Hrs: Meds Administered (Past 24Hrs) Medications (Trade) Dose Ordered Sig/Heri Route Start Time Stop Time Status Last Admin Dose Admin Naproxen (Naprosyn Tab) 250 mg BID PRN PO 01/01/17 09:45 01/31/17 09:44 01/01/17 13:23 250 MG Bupropion HCl (Wellbutrin-Sr Tab) 150 mg QAM PO 01/02/17 09:00 01/03/17 08:59 DC 01/02/17 09:54 150 MG Haloperidol (Haldol Tab) 5 mg HS PO 01/01/17 22:00 01/31/17 21:59 01/02/17 21:43 5 MG Haloperidol (Haldol Tab) 5 mg 1100 ONCE PO 01/01/17 11:00 01/01/17 11:01 DC 01/01/17 11:15 5 MG Paroxetine HCl (pAXil TAB) 10 mg QAM PO 01/02/17 09:00 02/01/17 08:59 01/02/17 09:53 10 MG Haloperidol (Haldol Tab) 2.5 mg QAM PO 01/02/17 09:00 02/01/17 08:59 01/02/17 09:56 2.5 MG Haloperidol (Haldol Tab) 2.5 mg Q4H PRN PO 01/01/17 11:30 01/31/17 11:29 01/02/17 13:16 2.5 MG Polyethylene (Miralax Powder Packet) 17 gm DAILY PRN PO 01/02/17 11:00 02/01/17 10:59 01/02/17 13:25 17 GM
[2017-01-03] MEDS: NICOTINE 21 MG/24 HR TDSY TD SCH (09:26)
[2017-01-03] MEDS: PROPRANOLOL HCL 20 MG TAB PO SCH ×2 (09:27→20:54)
[2017-01-03] MEDS: CLONIDINE HCL 0.1 MG TAB PO SCH ×2 (09:27→20:54)
[2017-01-03] MEDS: AMOXICILLIN 500 MG CAP PO SCH ×3 (09:28→20:54)
[2017-01-03] MEDS: HALOPERIDOL 5 MG TAB PO SCH ×2 (09:28→20:54)
[2017-01-03] MEDS: PAROXETINE 20 MG TAB PO SCH (09:28)
[2017-01-03] MEDS: HALOPERIDOL 5 MG TAB PO PRN (19:24)
[2017-01-03] MEDS: hydrOXYzine HCL 25 MG TAB PO PRN (19:24)
[2017-01-04 06:53] VITALS: BP_SYST 104; BP_SYST 111; BP_DIAS 67; BP_DIAS 68; PULSE 53; PULSE 66; TEMP 37.1
[2017-01-04] MEDS: AMOXICILLIN 500 MG CAP PO SCH ×2 (09:27→13:45)
[2017-01-04] MEDS: CLONIDINE HCL 0.1 MG TAB PO SCH (09:27)
[2017-01-04] MEDS: HALOPERIDOL 5 MG TAB PO SCH (09:27)
[2017-01-04] MEDS: PROPRANOLOL HCL 20 MG TAB PO SCH (09:28)
[2017-01-04] MEDS: PAROXETINE 20 MG TAB PO SCH (09:29)
[2017-01-04] MEDS: NICOTINE 21 MG/24 HR TDSY TD SCH (09:29)
[2017-01-04 09:37] VITALS: BP 108/73; PULSE 62
[2017-01-04] MEDS ORDERED: NICO21DI4 TD (10:37)
[2017-01-04] MEDS ORDERED: PROP20TA67 PO (10:37)
[2017-01-04] MEDS ORDERED: HLD5 PO (10:37)
[2017-01-04] MEDS ORDERED: PXL20 PO (10:37)
[2017-01-04] MEDS ORDERED: CLON0.1T12 PO (10:37)
[2017-01-04] MEDS ORDERED: HALOPERIDOL 5 MG TAB PO ONE (10:45)
--- NOTE | 2017-01-04 10:54 | Discharge Instructions ---
Discharge Information Report Includes Report will include the: Discharge Instructions & Summary Admission Admission Date / Time: Dec 31, 2016 at 15:54 Reason for Admission: Depression Discharge Discharge Diagnosis / Problem: Depression, substance abuse Condition at Discharge: Fair Discharge Goals Goal(s): Decrease discomfort, Improve disease control Activity Recommendations Activity Limitations: resume your previous activity . Instructions / Follow-Up Instructions / Follow-Up . SPECIAL CARE INSTRUCTIONS: 1. Follow through with your scheduled aftercare appointments. If unable to keep an appointment, please call to reschedule. 2. Take your medication only as prescribed. Medication should not be changed or stopped without the approval of your doctor. In the event of worsening symptoms or concerns about side effects, contact your doctor immediately. 3. Utilize new healthy coping skills, anger management skills, and stress management skills learned during your hospitalization. Journal feelings and process them with a support person. Identify stressors or situations that may result in relapse, deterioration or inappropriate behaviors and develop a plan to deal with those issues. 4. If your coping skills are ineffective and you are in crisis, contact your outpatient providers for direction. If unable to reach your providers, please call the [facility] LINE AT or go to the closest Emergency Room. 5. Avoid alcohol and un-prescribed drugs. 6. You have been provided with the Mental Health Advance Directives Pamphlet for your review. AFTERCARE APPOINTMENTS: * Please call your insurance company prior to your scheduled appointment to confirm your aftercare providers are covered. Take your insurance information to your appointments. . Discharge / Aftercare Planning Primary Care Physician: Name: Dr Ervin Appointment Notes: As needed Psychiatrist: Name: Dr Umanzor Date of Appointment: Jan 15, 2017 Time of Appointment: 10:00am Pain Clinic: [facility] . Follow-Up Care Plan for Follow-Up Care: The patient has an appt with Dr. Umanzor on 01/15/17 Current Hospital Diet Patient's current hospital diet: Regular Diet Discharge Diet Recommended Diet: Regular Diet Procedures Procedures Performed: No Pending Studies Pending Studies at Discharge: No Medical Emergencies . Who to Call and When: Medical Emergencies: For questions or emergencies related to your hospital stay, please contact the Inpatient Behavioral Health Unit at [phone]. A solid fiber paster operator is on-call 15/10 for the Behavioral Health Unit for emergencies At any time you feel your situation is an emergency, you may also call 911 immediately. . Non-Emergent Contact Non-Emergency issues call your: Psychiatrist Advance Directives Existing Advance Directive: No Do You Have an Existing Mental: No Existing Living Will: No Existing Power of Iron Pellet Tester: No Advance Directives Info Given: To Pt/S.O. Advance Directives Reason: Declines as Mental Health Visit. Discharge Summary Admission HPI Per the Admitting provider: The patient was seen with Xochitl Castro MS3. She states she came in "to make sure my meds are straight before I go into alf, I'm going to be going in there for more than 5 months." She says she wants to try Paxil as she has 2 friends on it and they like it, and she hasn't been on it since she was 16, "so I think it's worth a try." She also wants an antipsychotic. She doesn't think bupropion is helping with mood or with smoking cessation, which she says it was started for. She sees Dr. Umanzor, but says her PCP Dr. Ervin prescribed the bupropion to help her quit smoking. She also takes Ambien, but says it doesn't work and she hasn't been sleeping. She is also prescribed diazepam form Dr. Umanzor which she filled 12/20/16, but says she is not taking it, and her UDA was negative for benzos. She says she is not taking it since she started Suboxone. She says she is supposed to be taking chlorpromazine, but stopped it a few weeks ago because she thinks it caused weight gain and made her angry. She has been taking Adderall tid from Dr. Umanzor, and says she just started Suboxone for fibromyalgia about a week ago (per PDMP filled Rx 12/28/16 for #5 days). She is aware that she won't be able to get controlled substances in alf. She feels "unable to think clearly," and says she wants an antipsychotic to address that. She is not able to explain this in more detail. Thoughts are "all over the place ," cannot say if they are slow or fast. Denies AVH, paranoia. She says she is "not really" suicidal anymore, "but it comes and goes." She is very vague when asked about the specific symptoms that she wants to address, and is not sure if she knows all of the medication she is supposed to be taking at home. She has not been sleeping, and wants to know what she can take for sleep. She also complains of headache, and wants to know what she could take other than Tylenol. She reports "stressed" mood, worsening for the past week, due to legal problems. She says "my life is so messed up right now, I don't know if it will ever be straightened out." She says her ex- and ex-best friend are dating , "and they keep pushing me...they're allowed to say stuff and I'm not, because they put a PFA on me. I couldn't fight the PFA because I was incarcerated at the time...I got screwed, life's just not fair." She says her ex-friend was texting her, "but nothing's going to happen to her, it's not fair." She just got off probation and says the following morning this woman started sending her messages over social media. She is also stressed that she won't be able to see her kids while in alf, and has an 11 y/o daughter and twin 10 y/o boys. She reports poor concentration and energy, but good appetite. She feels overwhelmed by her stressors, "I don't know how I'm going to deal with everything in the next couple weeks, I have a lot to contend with." She says she wouldn't mind going to [facility], but thinks she will be going to [facility], which is "horrible." She endorses SI with thoughts to overdose, but denies she acted on them. She does have access to many different medications at home. She reports worry about her situation and legal problems. She is vague about the events that led to her coming to the ER, but eventually states she was at her child's football game and was talking to her ex-, and her mother made threatening comments to her ex-best friend, saying "her days are numbered." She then went to Dr. Valdez's office, and while there the police called her and told her that she needed to come to the police station. She says she told them "I'd get there after I handled my situation." She then went to a friend's house and spent the night there, called [facility] in the morning, they came and assessed her, and her mother then brought her in. She is taking prednisone and an antibiotic for bronchitis. Spoke with the nurse and warden at [facility], who state they do not have a formulary per se, but don't typically give controlled substances or have access to more expensive meds. Spoke to staff at Dr. Umanzor's office who state she was just seen there on 12/20/[address] Umanzor and 12/25/16 by Nayeli, and is prescribed chlorpromazine 100mg bid and 200mg qhs started 12/30/16, diazepam 5mg bid, hydroxyzine 25mg q 12 hr prns, propranolol 20mg daily, Adderall 20mg tid, and zolpidem 10mg qhs. Hospital Course (1) Bipolar II disorder 01/01 - Patient has been noncompliant with chlorpromazine, and has been taking unopposed bupropion and Adderall, which has likely contributed to insomnia and destabilization of mood. She is requesting a different antipsychotic, but has tried numerous ones in the past as above. We will start by getting the formulary from [facility] and will review those medications with her. We will taper her off bupropion over the next 2 days. Obtain records from Dr. Umanzor, and call him to coordinate care given concerns about the numerous controlled substance she is prescribed that may be worsening symptoms, and her pending incarceration. Discontinue zolpidem and diazepam, as she will not be able to get these in alf and they're contraindicated given her polysubstance abuse history. Discontinue Adderall, as it is likely contributing to insomnia, anxiety, contraindicated given her addictions history , and she does not have ADHD. - Consider trial of paroxetine once she is on a mood stabilizing medication. Can start 10 milligrams daily tomorrow. Recommend she take chlorpromazine as prescribed by Dr. Umanzor, which was just started within the past week, but she is refusing this, stating that it makes her more angry. It is not clear if she actually filled the recent prescription and took it or not. Reviewed other antipsychotic options available at the alf, including Prolixin, haloperidol, and Depakote, and she requested a trial of Haldol. We will start 2.5 mg every morning and 5 mg daily at bedtime after reviewing risks, benefits, and side effects. I will order benztropine 1 mg prn EPS. - Family meeting with mother. - Encourage group attendance and participation. Work on healthy coping skills and discharge safety plan. - Ideally patient would be discharged directly into police custody, however we do not have documentation of a warranted at this time. She indicates that she will be presenting herself to [facility] after discharge, but plans to go home first. - Referred for forensic case management services. - Coordinate care with all outpatient providers, including Dr. Ervin, Dr. Umanzor, and Dr. Pj Gaytan. Spoke to staff at Dr. Umanzor's office and Dr. Valdez's office to coordinate care. 01/02 - Coordinate with police re: warrant and discharge to alf. - Continue paroxetine 10mg qam and haldol as above. - Patient reminded that controlled substances are not indicated and will not be prescribed here. - Will attempt to balance the use of medications to target mood and anxiety symptoms with her level of sedation, as she repeatedly asks for additional medications, even when clearly sedated. She is asking for an increase in her Haldol dose, but I'm going to continue the current dose of 2.5 mg every morning and 5 mg daily at bedtime for now, as she also has a when necessary dose ordered , and is clearly sedated on exam. She is also refusing groups and spending her days in bed, and was advised that group attendance and participation is expected and is an important part of her treatment. She voiced understanding, but then returned to her room instead of attending group therapy. 01/03 - Patient continues to refuse all groups. She was advised again today that this is an important part of her treatment, and that if she is not actively engaged in treatment, we will pursue discharge. - Continue haloperidol 2.5 mg every morning and 5 mg daily at bedtime and paroxetine 10 mg daily. Consider decreasing Haldol if she continues to stay in bed all day, as it may be excessively sedating. She is asking to increase dose of medications, and this is not appropriate at this time. - Family meeting with mother. Primary goal is to get mother to bring in the patient's medications from home so that they can be safely disposed of, as she indicates she has quite a large stash of them and has had thoughts of overdosing in the past. In particular, the controlled substances she has should be removed and safely disposed of, including Suboxone, diazepam, Adderall , and zolpidem. - pantry worker spoken to the police, who will send the warrant, and will pick her up at discharge. (2) Personality disorder, unspecified Patient would benefit from ongoing therapy, but has been noncompliant with her outpatient therapist. Keep consistent boundaries. (3) polysubstance abuse Patient with a history of crack cocaine, alcohol, prescription opiate, and benzodiazepine abuse. Would not recommend she be prescribed any controlled substances due to the higher risk of misuse, abuse, and diversion. I will contact her current prescribers to inform them of her pending incarceration and discontinuation of controlled substances. (Dr. Umanzor's and Dr. Valdez's offices both contacted and informed of admission and discontinuation of controlled substances). (4) Fibromyalgia Tylenol and naproxen as needed, encourage gentle exercise, use of heating pad, and stretching. (5) Bronchitis Complete course of prednisone and amoxicillin as prescribed by Dr. Pj Gaytan. (6) Nicotine abuse 01/02 - Continue patch and add gum for nicotine cravings. (7) Constipation 01/02 - patient reports constipation over the past week or so since starting Suboxone. She has MOM, and I will add MiraLAX, which she states she takes at home. Could also offer her prune juice, and encourage walking and adequate fluid intake. Risk Factors Assessment : Yes /single/: Yes Higher / Fall in social status: No Access to guns: No Health problems: Yes Mental Health Diagnoses: Yes Substance use disorders: Yes Previous attempt: No Previous psychiatric stay: Yes Hopelessness: No Smoker: Yes Protective Factors Assessment Islam beliefs: Yes : No Responsible for young children: Yes Employed: No Stable relationships: No Supportive family: Yes (mother) Day of Discharge Assessment COURSE OF HOSPITALIZATION: The patient was on our unit for 4 days. She presented to the ER with a request to have her medications changed as she didn' t think that they were working and she was likely going to have to go to alf for 5 months on violation of a PFA. She requested to return to Paxil and add an antipsychotic for mood stabilization in view of past diagnosis of bipolar disorder. She was ordered Paxil 20 mg daily and Haldol 2.5 mg a.m. and 5 mg at bedtime. CONTROLLED substances were discontinued in view of her severe history of substance use. This included stimulants, Suboxone and benzodiazepines. During the first 3 days of her hospital stay, she refused to attend groups, staying in her room in bed, only coming out to eat meals. She denied suicidal thinking throughout. The patient signed a release of information to speak with the police regarding the warrant that they attempted to serve her. The police indicated that they would like to pick her up at discharge, having a warrant for her arrest based on violation of PFA. A family meeting with her mother is scheduled for today to discuss her treatment moving forward. Social workers have asked mother to bring in all bottles of medication from home in an effort to destroy controlled substances and not have access medications at home patient to overdose on. DAY OF DISCHARGE ASSESSMENT: Upon learning that she would be discharged today, the patient insisted that she could not go, saying that she was suicidal and needed further medication adjustments. She also then started to talk about thinking that she was going to be transferred to the [facility] for further treatment, which had never been talked about his part of her treatment. It seemed clear that in the face of having denied suicidal ideation for the last 3 days, that her suicidal ideation today was likely an attempt to do for discharge and spanish moss picker by the police. She has not attended groups today nor has she showered and she was encouraged to do so in order to continue to treat her mood. She initially agreed to do so but when staff approached her later refused. Today she backtracks and says that she has had suicidal ideation for all of her days of her stay. She wants to stay in the hospital until her medications are working. We had a lengthy discussion about the meds taking several weeks to show maximum affect and that medications were only 50% of the picture, that she needed to be up and actively attending groups to work on increasing her coping strategies. We have discussed her treatment in treatment team this morning. We are all in agreement that to some degree the patient is using the hospitalization to avoid her alf term. We do not think that there are any other risk factors to mediate on a short-term mental health unit and so we will proceed with discharge after family meeting with mother at 1. In deference to her statements of suicidality today I have instructed the nurses to have her remain in public areas and to pay specific and close attention given the patient's statements of suicidality. This was related to the charge nurse and reviewed with Dr. Howard. At the time I see the patient, she is lying in bed in a darkened room. She refuses to get out of bed. She makes good eye contact. There are no abnormal muscle movements. She denies auditory or visual hallucinations. She is reporting suicidality. Speech is of normal rate volume and tone. Thoughts are organized, goal-directed, without evidence of thought disorder. Recent and remote memory are intact per conversation. Intelligence is estimated to be below average. Insight and judgment are mildly improved over admission. Laboratory Test 12/31/16 13:10 12/31/16 13:36 White Blood Count 7.15 Red Blood Count 4.16 Hemoglobin 13.0 Hematocrit 36.9 Mean Corpuscular Volume 88.7 Mean Corpuscular Hemoglobin 31.3 Mean Corpuscular Hemoglobin Concent 35.2 Platelet Count 261 Mean Platelet Volume 10.1 Neutrophils (%) (Auto) 60.2 Lymphocytes (%) (Auto) 32.2 Monocytes (%) (Auto) 7.0 Eosinophils (%) (Auto) 0.0 Basophils (%) (Auto) 0.3 Neutrophils # (Auto) 4.31 Lymphocytes # (Auto) 2.30 Monocytes # (Auto) 0.50 Eosinophils # (Auto) 0.00 Basophils # (Auto) 0.02 RDW Standard Deviation 40.8 RDW Coefficient of Variation 12.7 Immature Granulocyte % (Auto) 0.3 Immature Granulocyte # (Auto) 0.02 Sodium Level 137 Potassium Level 3.3 Chloride Level 103 Carbon Dioxide Level 27 Anion Gap 7.0 Blood Urea Nitrogen 9 Creatinine 0.69 Est Creatinine Clear Calc Drug Dose 126.2 Estimated GFR () 129.8 Estimated GFR (Non- 112.0 BUN/Creatinine Ratio 13.5 Random Glucose 107 Calcium Level 9.3 Total Bilirubin 0.4 Direct Bilirubin 0.1 Aspartate Amino Transferase (AST) 11 Alanine Aminotransferase (ALT) 14 Alkaline Phosphatase 51 Total Protein 7.3 Albumin 3.9 Thyroid Stimulating Hormone (TSH) 0.484 Ethyl Alcohol mg/dL < 3.0 Urine Color YELLOW Urine Appearance CLOUDY Urine pH 7.0 Urine Specific [place] 1.024 Urine Protein NEG Urine Glucose (UA) NEG Urine Ketones TRACE Urine Occult Blood NEG Urine Nitrite NEG Urine Bilirubin NEG Urine Urobilinogen NEG Urine Leukocyte Esterase NEG Urine WBC (Auto) 1-5 Urine RBC (Auto) 10-30 Urine Hyaline Casts (Auto) 1-5 Urine Epithelial Cells (Auto) >30 Urine Bacteria (Auto) 1+ Urine Test NEG Urine Opiates Screen NEG Urine Methadone, Qualitative NEG Urine Barbiturates NEG Urine Phencyclidine (PCP) Level NEG Urine Amphetamines Confirmation Pending Ur Amphetamine/Methamphetamine POS Urine Methamphetamine Confirmation Pending Urine MDE-amphetamine (MDEA) Pending Ur Methylenedioxyamphetamine (MDA) Pending MDMA (Ecstasy) Screen POS Methylenedioxymethamphetamine (MDMA Pending Urine Benzodiazepines Screen NEG Urine Cocaine Metabolite NEG Urine Marijuana (THC) NEG Total Time Total Time Spent (min): Greater than 30 minutes Total Time Included: examination of the patient, discharge planning, medication reconciliation, communication with other providers Tobacco Cessation at Discharge Smoking Status: Current Every Day Smoker (1/2 PPD x 15 years) FDA approved Prescription: nicotine replacement product
[2017-01-04] MEDS ORDERED: DESTROY THIS MEDICATION ONE (14:15)
== END 2017-01-04 14:45 | DRG 885 ==
LOC: C.EDB 12:20 → C.MHU 15:54 → ENRESERV 16:55 → CANBEDREQ 19:55
PROVIDERS: ADMIT Psychiatry & Neurology Psychiatry; ATTEND Psychiatry & Neurology Psychiatry
DX: F31.81 Bipolar II disorder (principal); R45.851 Suicidal ideations; J40 Bronchitis, not specified as acute or chronic; F19.10 Other psychoactive substance abuse, uncomplicated; M79.7 Fibromyalgia; F17.200 Nicotine dependence, unspecified, uncomplicated; K59.00 Constipation, unspecified; Z79.52 Long term (current) use of systemic steroids; Z79.899 Other long term (current) drug therapy

== ENCOUNTER → 2017-02-18 | Outpatient (CLI) | payer OTHER ==
[~2017-02-18] MED LIST changes: -AMPH10TA2 PO; -BUPR-102 PO; -CHLO100T8 PO; -CHLO1TAB45 PO; -CLC100 PO; +CLON0.1T12 PO; -DPKSR/500 PO; +HLD5 PO; +HYDROmorphone INJ 2 MG/ML SYR/VIAL ONE; -MELO15TA4 PO; -MRLP527 PO; +NICO21DI4 TD; -NRN600 PO; -ONDA-63 PO; +PXL20 PO; -SNG10 PO; -TRAZ50TA35 PO; -VARE1PAK15 PO; -VLM5CL PO; +VNTHFA/IN INH; -[UNRECOGNIZED DRUG - CODE] PO
--- NOTE | 2017-02-18 15:00 | DIAGNOSTIC IMAGING REPORT ---
KUB HISTORY: Nephrolithiasis follow-up study N20.0 NephrolithiasisRAD COMPARISON: CT abdomen and pelvis 10/08/2016, KUB 09/23/2016. FINDINGS: The bowel gas pattern is non-obstructive. Moderate stool volume of the colon, notably the ascending portion suggests constipation. There is no organomegaly. No renal calculi. No ureteral calculi. The renal shadows however are obscured by bowel gas. No pneumoperitoneum or pneumatosis. No fracture. Cholecystectomy clips noted. IMPRESSION: 1. No urolith identified. 2. Moderate stool volume suggests constipation. Electronically signed by: Chano Montaño M.D. 02/18/2017 2:59 PM Dictated Date/Time: 02/18/2017 2:57 PM
== END | disposition home or self-care (01) ==
LOC: C.RAD 14:27
PROVIDERS: ATTEND Urology
DX: N20.0 Calculus of kidney (principal); R39.9 Unspecified symptoms and signs involving the genitourinary system

== ENCOUNTER → 2017-03-14 | Outpatient (CLI) | payer OTHER ==
[~2017-03-14] MED LIST changes: -HYDROmorphone INJ 2 MG/ML SYR/VIAL ONE
== END | disposition home or self-care (01) ==
LOC: C.LABSPEC 13:23
PROVIDERS: ATTEND Physician Assistant
DX: N89.8 Other specified noninflammatory disorders of vagina (principal)

== ENCOUNTER → 2017-04-11 | Outpatient (CLI) | payer OTHER | END | disposition home or self-care (01) | LOC: C.RAD1850 16:22 | DX: M25.562 Pain in left knee (principal); W19.XXXA Unspecified fall, initial encounter ==

== ENCOUNTER 2017-07-02 18:50 | Emergency (ER) | payer OTHER ==
[2017-07-02 19:10] VITALS: TEMP 37.1
[2017-07-02] MEDS ORDERED: LORAZEPAM 1 MG TAB SL STA (19:19)
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
[2017-07-02 20:27] LABS: BASO % 0.2 %; BASO ABS # 0.02 K/uL (0-0.2); EOS % 0.2 %; EOS ABS # 0.02 K/uL (0-0.5); HEMATOCRIT 37.5 % (37-47); HEMOGLOBIN 12.8 g/dL (12.0-16.0); IG# 0.03 K/uL (0.00-0.02); LYMPH % 44.9 %; LYMPH ABS # 3.82 K/uL (1.2-3.4); MEAN CELL VOLUME 83.3 fL (80-100); MEAN CORPUSCULAR HEMOGLOBIN 28.4 pg (25-34); MEAN CORPUSCULAR HGB CONC 34.1 g/dl (32-36); MEAN PLATELET VOLUME 10.2 fL (7.4-10.4); MONO % 8.1 %; MONO ABS # 0.69 K/uL (0.11-0.59); NEUT % 46.2 %; NEUT ABS # 3.93 K/uL (1.4-6.5); PLATELET COUNT 211 K/uL (130-400); RED CELL DISTRIBUTION WIDTH CV 13.6 % (11.5-14.5); RED CELL DISTRIBUTION WIDTH SD 41.1 fL (36.4-46.3); WHITE BLOOD COUNT 8.51 K/uL (4.8-10.8)
[2017-07-02 20:27] LABS: ALBUMIN 3.9 gm/dl (3.4-5.0); ALT/SGPT 30 U/L (12-78); BLOOD UREA NITROGEN 12 mg/dl (7-18); CARBON DIOXIDE 22 mmol/L (21-32); CREATININE 1.09 mg/dl (0.60-1.20); GLUCOSE 81 mg/dl (70-99); POTASSIUM 3.3 mmol/L (3.5-5.1); SODIUM 138 mmol/L (136-145)
[2017-07-02 20:38] LABS: ALKALINE PHOSPHATASE 86 U/L (45-117); AST/SGOT 39 U/L (15-37); TOTAL PROTEIN 7.4 gm/dl (6.4-8.2)
[2017-07-02] MEDS ORDERED: DOCU-94 PO (21:44)
[2017-07-02] MEDS ORDERED: GABA-112 PO (21:46)
[2017-07-02] MEDS ORDERED: PRAZ1CAP PO (21:47)
[2017-07-02] MEDS ORDERED: PARO30TA PO (21:49)
[2017-07-02] MEDS ORDERED: PHEN37.585 PO (21:50)
[2017-07-02] MEDS ORDERED: PROP20TA67 PO (21:51)
[2017-07-02] MEDS ORDERED: QUET1TAB37 PO (21:52)
[2017-07-02] MEDS ORDERED: CLON0.1T12 PO (21:54)
[2017-07-02] MEDS ORDERED: BUPR1SUB23 SL (21:56)
[2017-07-02] MEDS ORDERED: MIRT30TA2 PO (21:58)
[2017-07-02] MEDS ORDERED: TOPI100T20 PO (21:59)
[2017-07-02] MEDS ORDERED: DOXA1TAB88 PO (22:01)
[2017-07-02] MEDS ORDERED: HALO5TAB PO (22:02)
[2017-07-02] MEDS ORDERED: CLR10 PO (22:04)
[2017-07-02] MEDS ORDERED: NOTE (22:07)
--- NOTE | 2017-07-03 06:24 | EMERGENCY ROOM VISIT NOTE ---
ED Visit Note First contact with patient: 02:16 37 yr old female with extensive psychiatric history arrived earlier in evening for acute mental status evaluation and seen by Dr Short. Concern not taking her psych meds and has been in acute manic episode with minimal sleep recently. Medical work-up benign though patient requiring Ativan to calm down. Eventually fell asleep and quite somnolent. Signed out to me awaiting awakening. She slept soundly throughout night and when awakened she is too groggy for mental health evaluation. Plan monitor until more awake and have Mental Health evaluate her further. Signed out to Dr Awan awaiting waking up.
--- NOTE | 2017-07-03 07:09 | DIAGNOSTIC IMAGING REPORT ---
HEAD CT NONCONTRAST CT DOSE: 614.27 mGy.cm HISTORY: Altered mental status. TECHNIQUE: Multiaxial CT images of the head were performed without the use of intravenous contrast. Automated exposure control was utilized for this study. A dose lowering technique was utilized adhering to the principles of ALARA. Comparison: Head CT 10/10/2013. Findings: The paranasal sinuses and mastoid air cells are clear. The calvarium and skull base are intact. The ventricles and sulci are within normal limits. There is no mass, hematoma, midline shift, or acute infarct. Impression: No acute intracranial abnormality. Electronically signed by: Tien Cavanaugh M.D. 07/03/2017 7:07 AM Dictated Date/Time: 07/03/2017 7:05 AM
[2017-07-03] MEDS ORDERED: BUPRENORPHINE/NALOXONE 2/0.5MG 1 TAB PO SCH (08:30)
[2017-07-03 11:59] VITALS: BP 137/72; PULSE 98; O2SAT 99
--- NOTE | 2017-07-03 15:41 | EMERGENCY ROOM VISIT NOTE ---
ED Visit Note First contact with patient: 07:30 Patient was signed out to me from Dr. Hutchinson awaiting evaluation by psychiatry. Patient was deemed medically stable. On my evaluation patient is resting comfortably at bedside. She denies any auditory or visual hallucinations. She denies any suicidal or homicidal thoughts. She notes she does feel significantly better. Mom is at bedside as well. Patient was evaluated by Rain from psychiatry. Patient admits that she would like to go home and she feels much better after resting. She is completely oriented to person place and time. She is following commands. She has no other complaints. Mom believes that she is not a danger to herself and would prefer to take her home. At this time I have no recourse to hold her here. Do not believe that she is a danger to herself or anyone else. Patient was discharged in mom's care to follow-up with PCP as an outpatient. Discussed with Pt concerning signs and symptoms to watch out for. Pt was instructed to follow up with their PCP and discussed with the patient their option to return to the ED at anytime for persistent or worsening symptoms. The appropriate anticipatory guidance and out-patient management, including indications for return to the emergency department, were explained at length to the patient and understood.
== END 2017-07-03 12:00 | disposition home or self-care (01) ==
LOC: EDBD 18:50 → C.EDB 18:51 → C.EDA 07-03 12:00
DX: R41.82 Altered mental status, unspecified (principal); F31.81 Bipolar II disorder; F41.9 Anxiety disorder, unspecified; G43.909 Migraine, unspecified, not intractable, without status migrainosus; F60.9 Personality disorder, unspecified; M79.7 Fibromyalgia; Z79.899 Other long term (current) drug therapy; F17.210 Nicotine dependence, cigarettes, uncomplicated; Z91.048 Other nonmedicinal substance allergy status; Z91.013 Allergy to seafood

== ENCOUNTER 2017-07-24 21:12 | Emergency (ER) | payer OTHER ==
[~2017-07-24] VITALS: Ht 175.3 cm; Wt 88.9 kg
[~2017-07-24 21:12] MED LIST changes: +BUPR1SUB23 SL; +CLR10 PO; +DOCU-94 PO; +DOXA1TAB88 PO; +GABA-112 PO; +HALO5TAB PO; -HLD5 PO; +MIRT30TA2 PO; -NICO21DI4 TD; +NOTE; +PARO30TA PO; +PHEN37.585 PO; +PRAZ1CAP PO; -PXL20 PO; +QUET1TAB37 PO; +TOPI100T20 PO; -VNTHFA/IN INH
[2017-07-24 21:23] VITALS: TEMP 37.2; Ht 175.3 cm; Wt 88.9 kg
--- NOTE | 2017-07-24 23:02 | DIAGNOSTIC IMAGING REPORT ---
RIGHT ANKLE 3 VIEWS CLINICAL HISTORY: Fall with right ankle injury. FINDINGS: 3 views of the right ankle are obtained. No prior studies are available for comparison at the time of dictation. The skeletal structures are well mineralized. No fracture is seen. The ankle mortise is intact. Mild soft tissue swelling is present around the ankle. There is no large joint effusion. IMPRESSION: Soft tissue swelling with no radiographic evidence of right ankle fracture. Electronically signed by: Mohan Alba M.D. 07/24/2017 11:01 PM Dictated Date/Time: 07/24/2017 11:00 PM
--- NOTE | 2017-07-24 23:04 | DIAGNOSTIC IMAGING REPORT ---
LEFT ANKLE 3 VIEWS CLINICAL HISTORY: Fall with left ankle injury. FINDINGS: 3 views of the left ankle are obtained. No prior studies are available for comparison at the time of dictation. The skeletal structures are well mineralized. No fracture is seen. Degenerative spurring is seen along the posterior tibial plafonds. The ankle mortise is intact. Mild soft tissue swelling is present around the ankle. There is a small joint effusion. IMPRESSION: Soft tissue swelling and joint effusion with no radiographic evidence of left ankle fracture. Electronically signed by: Mohan Alba M.D. 07/24/2017 11:03 PM Dictated Date/Time: 07/24/2017 11:01 PM
[2017-07-24 23:46] VITALS: BP 136/61; PULSE 80; O2SAT 99
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
== END 2017-07-24 23:49 | disposition home or self-care (01) ==
LOC: C.EDB 21:13 → C.EDC 23:49
DX: S99.911A Unspecified injury of right ankle, initial encounter (principal); S99.912A Unspecified injury of left ankle, initial encounter; M25.571 Pain in right ankle and joints of right foot; M25.572 Pain in left ankle and joints of left foot; R51 Headache; F31.81 Bipolar II disorder; M79.7 Fibromyalgia; Z79.899 Other long term (current) drug therapy; F17.210 Nicotine dependence, cigarettes, uncomplicated; W22.8XXA Striking against or struck by other objects, initial encounter

== ENCOUNTER → 2017-07-31 | Outpatient (CLI) | payer OTHER ==
--- NOTE | 2017-07-31 10:46 | DIAGNOSTIC IMAGING REPORT ---
SINUSES MIN 3 VIEWS ROUTINE CLINICAL HISTORY: J01.90 Acute sinusitis, recurrence not specified, unspecified lo COMPARISON STUDY: None FINDINGS: Normal study. All major sinuses are clear. IMPRESSION: Normal evaluation of the sinuses The above report was generated using voice recognition software. It may contain grammatical, syntax or spelling errors. Electronically signed by: Ehsan Finch M.D. 07/31/2017 10:44 AM Dictated Date/Time: 07/31/2017 10:37 AM
== END | disposition home or self-care (01) ==
LOC: C.RAD1850 10:15
PROVIDERS: ATTEND Internal Medicine
DX: J01.90 Acute sinusitis, unspecified (principal)

== ENCOUNTER → 2017-08-12 | Outpatient (CLI) | payer OTHER ==
--- NOTE | 2017-08-12 15:45 | DIAGNOSTIC IMAGING REPORT ---
R FOOT MIN 3 VIEWS ROUTINE CLINICAL HISTORY: PAIN OF FOOT AND TOES COMPARISON: Right foot radiographs August 12, 2015. FINDINGS: Tarsometatarsal joints are intact. There is no acute fracture within the right foot. There is no evidence for a stress fracture. There is a bipartite medial sesamoid of the right first toe. No erosions are identified. IMPRESSION: No acute fracture or dislocation within the right foot. No significant abnormality of the right foot. Electronically signed by: Nehemias Clinton M.D. 08/12/2017 3:44 PM Dictated Date/Time: 08/12/2017 3:42 PM
--- NOTE | 2017-08-12 15:47 | DIAGNOSTIC IMAGING REPORT ---
L FOOT MIN 3 VIEWS ROUTINE CLINICAL HISTORY: PAIN OF FOOT AND TOES COMPARISON: Left foot radiographs August 12, 2015. FINDINGS: Tarsometatarsal joints are intact. Incidental note is made of a bipartite medial sesamoid of the left first toe. No acute fracture or suspicious lesion is identified. No erosions are identified. IMPRESSION: No acute fracture or dislocation within the left foot. No significant abnormality of the left foot. Electronically signed by: Nehemias Clinton M.D. 08/12/2017 3:46 PM Dictated Date/Time: 08/12/2017 3:44 PM
--- NOTE | 2017-08-12 16:05 | DIAGNOSTIC IMAGING REPORT ---
LEFT HAND 3 VIEWS, RIGHT HAND 3 VIEWS HISTORY: FINGER JOINT STIFF COMPARISON: None. FINDINGS: There is no fracture or dislocation. Soft tissues are unremarkable. No radiopaque foreign bodies. Bone mineralization is intact. No erosions identified. Cartilage spaces are maintained. IMPRESSION: No significant abnormality within the bilateral hands. Electronically signed by: Tien Cavanaugh M.D. 08/12/2017 4:03 PM Dictated Date/Time: 08/12/2017 4:01 PM
[2017-08-12 16:36] LABS: BASO % 0.3 %; BASO ABS # 0.03 K/uL (0-0.2); EOS % 0.1 %; EOS ABS # 0.01 K/uL (0-0.5); HEMATOCRIT 42.9 % (37-47); HEMOGLOBIN 14.6 g/dL (12.0-16.0); IG# 0.06 K/uL (0.00-0.02); LYMPH % 34.2 %; LYMPH ABS # 3.26 K/uL (1.2-3.4); MEAN CELL VOLUME 85.3 fL (80-100); MEAN PLATELET VOLUME 10.2 fL (7.4-10.4); MONO % 5.7 %; MONO ABS # 0.54 K/uL (0.11-0.59); NEUT % 59.1 %; NEUT ABS # 5.63 K/uL (1.4-6.5); PLATELET COUNT 231 K/uL (130-400); RED CELL DISTRIBUTION WIDTH CV 13.9 % (11.5-14.5); WHITE BLOOD COUNT 9.53 K/uL (4.8-10.8)
== END | disposition home or self-care (01) ==
LOC: C.LAB1850 15:08
PROVIDERS: ATTEND Internal Medicine
DX: M79.673 Pain in unspecified foot (principal); M25.649 Stiffness of unspecified hand, not elsewhere classified

== ENCOUNTER 2021-02-15 16:36 | Inpatient (IN) ==
[2021-02-15] MEDS ORDERED: LORazepam 1 MG TAB SL STA (17:46)
[2021-02-15] MEDS ORDERED: hydrOXYzine HCl 25 MG TAB PO STA (17:46)
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
[2021-02-15 18:17] LABS: Basophils # (auto) 0.03 K/uL (0-0.2); Basophils % (auto) 0.2 %; Eosinophils # (auto) 0.02 K/uL (0-0.5); Eosinophils % (auto) 0.1 %; Hematocrit (blood only) 45.2 % (37-47); Hemoglobin 15.3 g/dL (12.0-16.0); Immature Granulocytes # (auto) 0.04 K/uL (0.00-0.02); Immature Granulocytes % (auto) 0.3 %; Lymphocytes # (auto) 3.26 K/uL (1.2-3.4); Lymphocytes % (auto) 20.8 %; Mean Corpuscular Hemoglobin 29.1 pg (25-34); Mean Corpuscular Hgb Conc 33.8 g/dL (32-36); Mean Corpuscular Volume 86.1 fL (80-100); Mean Platelet Volume 10.5 fL (7.4-10.4); Monocytes # (auto) 1.22 K/uL (0.11-0.59); Monocytes % (auto) 7.8 %; Neutrophils # (auto) 11.09 K/uL (1.4-6.5); Neutrophils % (auto) 70.8 %; Platelet Count 314 K/uL (130-400); RDW Coefficient of Variation 13.1 % (11.5-14.5); RDW Standard Deviation 41.2 fL (36.4-46.3); Red Blood Count 5.25 M/uL (4.2-5.4); White Blood Count 15.66 K/uL (4.8-10.8)
[2021-02-15 18:23] LABS: Appearance Urine Clear (Clear); Bacteria Urine Automated 1+ (Negative); Bilirubin Urine Negative (Negative); Blood Urine Negative (Negative); Color Urine Dark Yellow; Epithelial Cell Urine Auto >30 /lpf (0-5); Glucose Urine UA Negative (Negative); Ketones Urine Negative (Negative); Leukocyte Esterase Urine Negative (Negative); Nitrite Urine Negative (Negative); Protein Urine 1+ (Negative); Specific Gravity Urine 1.021 (1.000-1.030); Urobilinogen Urine Negative (Negative); pH Urine 5.5 (4.5-7.5)
[2021-02-15 18:35] LABS: Albumin Level 4.6 gm/dl (3.4-5.0); BUN Creatinine Ratio 13.7 (10-20); Calcium 10.6 mg/dl (8.5-10.1); Creatinine Clr Calc Pharmacy 87.8 ml/min; Est GFR (African American) 84.7 ml/min; Est GFR (Non-African American) 73.1 ml/min; Potassium 3.7 mmol/L (3.5-5.1)
[2021-02-15 18:42] LABS: Amphetamines+Metham, Urine Neg (Neg); Barbiturates, Urine Neg (Neg); Benzodiazepine, Urine Neg (Neg); Cocaine, Urine Neg (Neg); MDMA (Ecstacy), Urine Neg (Neg); Methadone, Urine Neg (Neg); Opiate, Urine Neg (Neg); Phencyclidine, Urine Neg (Neg)
[2021-02-15 18:45] LABS: Bilirubin,Total 0.6 mg/dl (0.2-1); Globulin 4.4 gm/dl (2.5-4.0); Thyroid Stimulating Hormone 1.19 uIu/ml (0.300-4.500)
[2021-02-15 18:55] LABS: Acetaminophen < 2 ug/ml (10-30); Salicylate < 1.7 mg/dl (2.8-20)
[2021-02-15 18:59] LABS: Pregnancy Test, Serum Negative (Negative)
[2021-02-15 19:11] LABS: Calcium Oxalate Crystals Urine Present (None Prsent)
[2021-02-15 19:12] LABS: Mucus Urine Present (None Prsent); RBC Urine Automated 0-4 /hpf (0-4)
[2021-02-15 20:38] VITALS: O2SAT 97
[2021-02-15] MEDS ORDERED: ACETAMINOPHEN 325 MG TAB PO PRN (21:12)
[2021-02-15] MEDS ORDERED: ALUMINUM/MAGNESIUM SUSP 30 ML UDC PO PRN (21:12)
[2021-02-15] MEDS ORDERED: NICOTINE POLACRILEX 2 MG GUM MT PRN (21:12)
[2021-02-15] MEDS ORDERED: MAGNESIUM HYDROXIDE SUSP 30 ML UDC PO PRN (21:12)
[2021-02-15] MEDS ORDERED: SODIUM CHLORIDE 0.65% NA SOLN 45 ML (OCEAN) PRN (21:12)
[2021-02-15] MEDS ORDERED: BISMUTH SUBSALICYLATE LIQD 236 ML PO PRN (21:12)
[2021-02-15] MEDS: cloNIDine HCL 0.1 MG TAB PO SCH (23:23)
[2021-02-16] MEDS: NICOTINE 14 MG/24 HR PATCH TD SCH ×2 (09:46→12:14)
[2021-02-16] MEDS: cloNIDine HCL 0.1 MG TAB PO SCH ×3 (09:47→21:16)
[2021-02-16] MEDS: BUPRENORPHINE/NALOXONE 8/2 MG TAB SL SCH (09:55)
[2021-02-16] MEDS: hydrOXYzine HCl 25 MG TAB PO PRN ×2 (11:11→16:46)
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
[2021-02-16] MEDS ORDERED: CETIRIZINE HCL 10 MG TABLET PO PRN (12:04)
[2021-02-16] MEDS: FLUoxetine HCL 20 MG CAP PO SCH (13:36)
[2021-02-16] MEDS: busPIRone 7.5 MG TAB PO SCH ×2 (13:38→17:46)
[2021-02-16] MEDS: DOCUSATE SODIUM 100 MG CAP PO SCH ×2 (13:39→21:16)
[2021-02-16] MEDS: GABAPENTIN 300 MG CAP PO SCH ×2 (13:39→21:17)
[2021-02-16] MEDS: LURASIDONE HCL 40 MG TAB PO SCH (17:47)
[2021-02-17 06:11] LABS: Glucose Fasting 91 mg/dl (70-99)
[2021-02-17 06:18] LABS: Chol HDL Ratio 3; Cholesterol 105 mg/dl (0-200); HDL Cholesterol 35 mg/dl; LDL Cholesterol Calculated 47 mg/dl; Triglycerides 116 mg/dl (0-150); VLDL Cholesterol 23 mg/dl
[2021-02-17] MEDS: DOCUSATE SODIUM 100 MG CAP PO SCH ×2 (09:12→20:25)
[2021-02-17] MEDS: GABAPENTIN 300 MG CAP PO SCH ×3 (09:12→20:25)
[2021-02-17] MEDS: FLUoxetine HCL 20 MG CAP PO SCH (09:13)
[2021-02-17] MEDS: cloNIDine HCL 0.1 MG TAB PO SCH ×3 (09:14→20:25)
[2021-02-17] MEDS: busPIRone 7.5 MG TAB PO SCH ×2 (09:15→17:15)
[2021-02-17] MEDS: NICOTINE 14 MG/24 HR PATCH TD SCH (09:17)
[2021-02-17] MEDS: BUPRENORPHINE/NALOXONE 8/2 MG TAB SL SCH (09:19)
--- NOTE | 2021-02-17 10:16 | Psychiatric Progress Note ---
Date of Service February 17, 2021 Impression / Recommendations Impression 40 yo female with a history of multiple inpatient psychiatric hospitalizations presents with mixed symptoms and inability to function after release from senior living on a disorderly conduct charge which is likely the result of ongoing mood instability given a recent ED visit. She is quite anxious and at times borders on disorganized but likely a factor of her borderline personality disorder rather than full blown zi in such that she desires to continue Prozac unchanged rather than hold the medication. 02/17/21: Tolerating Latuda retrial, BP and pulse improved, remains med focussed. (1) Bipolar II disorder with atypical features: (2) Anxiety: (3) Borderline personality disorder: 02/17/21: continue current meds and treatment plan. Fasting labs reviewed. 02/16/21: The patient was admitted to the [facility] on q15 min checks (behavioral with suicide precautions) for safety. The patient will participate in group, recreational, and milieu therapies and will be offered additional individual and family sessions as clinically appropriate. Her hx of opiate dependence is in remission and suboxone dose was confirmed with PDMP and external med rec. She reports wanting to stop neurontin and suboxone as "just another addiction" and reviewed that the dosing of suboxone can be reviewed with her outpatient prescriber and is reduced slowly over time. She has already missed mulitple doses of Neurontin in the past week so will resume at 300 mg TID and adjust taper as needed. Prozac will continue as ordered as above. She hasn't resumed nortriptyline and doesn't want to take it anymore due to polypharmacy and perceived lack of benefit. Buspar was just increased to 15 mg BID (hardn't even started yet) so will start that here for anxiety. Her hypertension and tachy in ED were likely rebound due to missed doses of clonidine. BP and P are improved and will resume clonidine 0.1 mg TID scheduled and determine ongoing need vs switch to another BP med with input from medical. Risks/benefits/alternatives were reviewed re: antipsychotics for mood and/or psychosis. Discussion included but was not limited to metabolic side effects, risks of TD and suicidal thoughts. There were no abnormal motor movements at baseline. Fasting glucose and lipid panel ordered for baseline monitoring. She desires to retry Latuda as previously effective and formulary (Rexulti is not). Risk Factors Assessment Do You Have Access To A Gun?: No Protective Factors Assessment Employed: No Interval History Identifying Information SUSAN SAAVEDRA is a 40-year-old F from [place], has a history of multiple inpatient hospitalizations for Borderline PD and bipolar disorder, and was admitted on 02/15/21 21:12 on a 201 voluntary commitment for inability to function due to anxiety/mixed episode. Chief Complaint "I'm still at my wits end, I've done everything, I can't take it, please take over". Review of Systems Sleep Information Total Hours of Sleep: 3.75 Sleep Comments: pt on q-15 minute checks. pt anxious to have her blood work done this am. pt NPO during the night. Meal Information Percent Meal Consumed - Breakfast: 90 Percent Meal Consumed - Lunch: 75 Percent Meal Consumed - Dinner: 100 Nutrition Comment: pt asleep at this time Subjective Subjective Patient was seen & assessed and interval progress reviewed with nursing. very focussed on her mother to the point she became suspicious of staff sharing info rmation when she was notified that mother dropped off some personal items, etc. Otherwise cooperative with unit routines. Slept less than 4 hours. Physical Exam Psychiatric Orientation: alert and oriented x 3 Eye Contact: + fair eye contact Motor Behavior: no abnormal motor movements Speech: normal rate/rhythm/volume of speech Affect: + depressed affect and + anxious affect Mood: + depressed mood Thought Process: + circumstantial thought process Thought Content: reality based without delusions Suicidal Thoughts: denies suicidal plan and denies suicidal intent; + reports suicidal thoughts Homicidal Thoughts: denies homicidal thoughts Hallucinations: no auditory hallucinations and no visual hallucinations Cognition: language grossly intact; + attention not intact Estimated Intelligence: consistent with education level Insight: + limited insight Judgement: + limited judgement Vital Signs (Past 24 Hours) Last Vital Signs Temp 37 C 02/17/21 06:37 Pulse 87 02/17/21 06:38 Resp 18 02/17/21 06:37 BP 123/87 02/17/21 06:38 Pulse Ox 97 02/15/21 22:27 Results & Data ([facility]) Laboratory Results Laboratory Results - last 24 hr 02/16/21 02/17/21 11:10 05:14 Fasting Glucose 91 Triglycerides 116 Cholesterol 105 LDL Cholesterol, Calc 47 VLDL Cholesterol, Calc 23 HDL Cholesterol 35 Cholesterol/HDL Ratio 3 Nasal Screen MRSA (PCR) Negative Current Inpatient Medications Current Inpatient Medications: Current Inpatient Medications Acetaminophen (Acetaminophen 325 Mg Tab) 650 mg PO Q4H PRN PRN Reason: Headache or Minor Fever Stop: 03/17/21 21:11 Last Admin: 02/16/21 22:34 Dose: 650 mg Documented by: Al Hydrox/Mg Hydrox/Simethicone (Aluminum/Magnesium Susp 30 Ml Udc) 30 ml PO Q4H PRN PRN Reason: GI Upset Stop: 03/17/21 21:11 Bismuth Subsalicylate (Bismuth Subsalicylate Liqd 236 Ml) 15 ml PO PRN PRN PRN Reason: Loose Stool Stop: 03/17/21 21:11 Buprenorphine/Naloxone (Buprenorphine/Naloxone 8/2 Mg Tab) 2.5 tab SL DAILY [facility] Stop: 03/18/21 08:59 Last Admin: 02/17/21 09:19 Dose: 2.5 tab Documented by: Buspirone HCl (Buspirone 7.5 Mg Tab) 15 mg PO BIDM [facility] Stop: 03/18/21 12:29 Last Admin: 02/17/21 09:15 Dose: 15 mg Documented by: Cetirizine HCl (Cetirizine Hcl 10 Mg Tablet) 10 mg PO DAILY PRN PRN Reason: Allergy Symptoms Stop: 03/18/21 12:03 Clonidine HCl (Clonidine Hcl 0.1 Mg Tab) 0.1 mg PO TID [facility] Stop: 03/18/21 13:59 Last Admin: 02/17/21 09:14 Dose: 0.1 mg Documented by: Docusate Sodium (Docusate Sodium 100 Mg Cap) 100 mg PO BID [facility] Stop: 03/18/21 12:29 Last Admin: 02/17/21 09:12 Dose: 100 mg Documented by: Fluoxetine HCl (Fluoxetine Hcl 20 Mg Cap) 60 mg PO QAM [facility] Stop: 03/18/21 12:29 Last Admin: 02/17/21 09:13 Dose: 60 mg Documented by: Gabapentin (Gabapentin 300 Mg Cap) 300 mg PO TID [facility] Stop: 03/18/21 13:59 Last Admin: 02/17/21 09:12 Dose: 300 mg Documented by: Hydroxyzine HCl (Hydroxyzine Hcl 25 Mg Tab) 50 mg PO HSZ PRN PRN Reason: Insomnia Stop: 12/24/21 21:11 Hydroxyzine HCl (Hydroxyzine Hcl 25 Mg Tab) 25 mg PO Q4H PRN PRN Reason: Anxiety Stop: 03/17/21 21:11 Last Admin: 02/16/21 16:46 Dose: 25 mg Documented by: Lurasidone HCl (Lurasidone Hcl 40 Mg Tab) 40 mg PO DAILYBD [facility] Stop: 03/18/21 17:14 Last Admin: 02/16/21 17:47 Dose: 40 mg Documented by: Magnesium Hydroxide (Magnesium Hydroxide Susp 30 Ml Udc) 30 ml PO DAILY PRN PRN Reason: Constipation Stop: 03/17/21 21:11 Miscellaneous (Remove Nicoderm Patch) 1 ea N/A DAILY@0859 [facility] Stop: 03/18/21 08:58 Last Admin: 02/17/21 09:16 Dose: Not Given Documented by: Nicotine (Nicotine 14 Mg/24 Hr Patch) 14 mg TD QAM [facility] Stop: 03/18/21 08:59 Last Admin: 02/17/21 09:17 Dose: Not Given Documented by: Nicotine Polacrilex (Nicotine Polacrilex 2 Mg Gum) 1 piece MT PRN PRN PRN Reason: Nicotine Withdrawal Stop: 03/17/21 21:11 Sodium Chloride (Sodium Chloride 0.65% Na Soln 45 Ml ([place])) 1 - 2 sprays NA PRN PRN PRN Reason: Nasal Dryness/Congestion Stop: 03/17/21 21:11 Mental Health & Subst Abuse Tx Psychiatrist Date of Appointment with Psychiatrist: 03/08/21 Therapist Name of Therapist: waiting list at [place] Employee Benefits Director Name of Employee Benefits Director: [employer] through [place] [facility] Post Discharge Appointments Primary Care Physician Name Of Family Doctor: Dr. Ervin
[2021-02-17] MEDS: LURASIDONE HCL 40 MG TAB PO SCH (17:14)
[2021-02-17] MEDS: MULTIVITAMIN TAB PO SCH (17:14)
[2021-02-17] MEDS ORDERED: ONDANSETRON 8MG OD TAB PO PRN (17:53)
[2021-02-17] MEDS: hydrOXYzine HCl 25 MG TAB PO PRN (18:05)
[2021-02-18] MEDS: BUPRENORPHINE/NALOXONE 8/2 MG TAB SL SCH (08:22)
[2021-02-18] MEDS: DOCUSATE SODIUM 100 MG CAP PO SCH ×2 (08:23→20:24)
[2021-02-18] MEDS: busPIRone 7.5 MG TAB PO SCH ×2 (08:23→17:25)
[2021-02-18] MEDS: MULTIVITAMIN TAB PO SCH (08:23)
[2021-02-18] MEDS: cloNIDine HCL 0.1 MG TAB PO SCH ×3 (08:23→20:23)
[2021-02-18] MEDS: GABAPENTIN 300 MG CAP PO SCH (08:23)
[2021-02-18] MEDS: FLUoxetine HCL 20 MG CAP PO SCH (08:23)
[2021-02-18] MEDS: NICOTINE 14 MG/24 HR PATCH TD SCH (08:24)
[2021-02-18] MEDS: hydrOXYzine HCl 25 MG TAB PO PRN ×3 (11:24→20:25)
[2021-02-18] MEDS ORDERED: bisacodyL 5 MG TABEC PO STA (11:36)
--- NOTE | 2021-02-18 12:26 | Psychiatric Progress Note ---
Date of Service February 18, 2021 Impression / Recommendations Impression 40 yo female with a history of multiple inpatient psychiatric hospitalizations presents with mixed symptoms and inability to function after [facility] on a disorderly [facility] charge which is likely the result of ongoing mood instability given a recent ED visit. She is quite anxious and at times borders on disorganized but likely a factor of her borderline personality disorder rather than full blown zi so Prozac was continued unchanged. 02/18/21: multiple social work concerns, reinforced limitations given holiday weekend. (1) Bipolar II disorder with atypical features: (2) Anxiety: (3) Borderline personality disorder: 02/18/21: clonidine taper as BP/P have normalized and patient desires to limit polypharmacy, taper Neurontin to 100 mg TID. Reviewed that will communicate her desire to further suboxone taper with her outpatient prescriber (was on 3 films daily for some time, now 2.5). Dulcolax for constipation. 02/17/21: continue current meds and treatment plan. Fasting labs reviewed. 02/16/21: The patient was admitted to the [facility] on q15 min checks (behavioral with suicide precautions) for safety. The patient will participate in group, recreational, and milieu therapies and will be offered additional individual and family sessions as clinically appropriate. Her hx of opiate dependence is in remission and suboxone dose was confirmed with PDMP and external med rec. She reports wanting to stop neurontin and suboxone as "just another addiction" and reviewed that the dosing of suboxone can be reviewed with her outpatient prescriber and is reduced slowly over time. She has already missed mulitple doses of Neurontin in the past week so will resume at 300 mg TID and adjust taper as needed. Prozac will continue as ordered as above. She hasn't resumed nortriptyline and doesn't want to take it anymore due to polypharmacy and perceived lack of benefit. Buspar was just increased to 15 mg BID (hardn't even started yet) so will start that here for anxiety. Her hypertension and tachy in ED were likely rebound due to missed doses of clonidine. BP and P are improved and will resume clonidine 0.1 mg TID scheduled and determine ongoing need vs switch to another BP med with input from medical. Risks/benefits/alternatives were reviewed re: antipsychotics for mood and/or psychosis. Discussion included but was not limited to metabolic side effects, risks of TD and suicidal thoughts. There were no abnormal motor movements at baseline. Fasting glucose and lipid panel ordered for baseline monitoring. She desires to retry Latuda as previously effective and formulary (Rexulti is not). Risk Factors Assessment Do You Have Access To A Gun?: No Protective Factors Assessment Employed: No Interval History Identifying Information SUSAN SAAVEDRA is a 40-year-old F from [place], has a history of multiple inpatient hospitalizations for Borderline PD and bipolar disorder, and was admitted on 02/15/21 21:12 on a 201 voluntary commitment for inability to function due to anxiety/mixed episode. Chief Complaint "I don't want to be a burden but this is all too much". Review of Systems Sleep Information Total Hours of Sleep: 6.5 Meal Information Percent Meal Consumed - Breakfast: 100 Percent Meal Consumed - Lunch: 100 Percent Meal Consumed - Dinner: 100 Subjective Subjective Patient was seen & assessed and interval progress reviewed with nursing and social work. Patient quite upset/attention seeking/anxious last pm, reports her nausea responded to Zofran. Today she does not attribute it to bupenorphine administration, she reports staff splitting around how to hold in mouth. She reiterates all of the same concerns re: her mother, housing, desire to taper her suboxone. She goes back and forth between owning behavior to blaming mother to wanting others to care for her to stating she's tried everything herself. Regardless, although not actively suicidal on unit she is more guarded today and hopeless. Physical Exam Psychiatric Orientation: alert and oriented x 3 Motor Behavior: no abnormal motor movements Speech: normal rate/rhythm/volume of speech Affect: + depressed affect Mood: + depressed mood Thought Process: + circumstantial thought process Thought Content: reality based without delusions Suicidal Thoughts: denies suicidal thoughts, denies suicidal plan and denies suicidal intent Homicidal Thoughts: denies homicidal thoughts Hallucinations: no auditory hallucinations and no visual hallucinations Cognition: attention grossly intact and language grossly intact Estimated Intelligence: consistent with education level Insight: + limited insight Judgement: + limited judgement Vital Signs (Past 24 Hours) Last Vital Signs Temp 36.9 C 02/18/21 06:00 Pulse 74 02/18/21 06:40 Resp 14 02/18/21 06:00 BP 110/73 02/18/21 06:40 Pulse Ox 97 02/17/21 19:14 Results & Data ([facility]) Current Inpatient Medications Current Inpatient Medications: Current Inpatient Medications Acetaminophen (Acetaminophen 325 Mg Tab) 650 mg PO Q4H PRN PRN Reason: Headache or Minor Fever Stop: 03/17/21 21:11 Last Admin: 02/16/21 22:34 Dose: 650 mg Documented by: Al Hydrox/Mg Hydrox/Simethicone (Aluminum/Magnesium Susp 30 Ml Udc) 30 ml PO Q4H PRN PRN Reason: GI Upset Stop: 03/17/21 21:11 Bismuth Subsalicylate (Bismuth Subsalicylate Liqd 236 Ml) 15 ml PO PRN PRN PRN Reason: Loose Stool Stop: 03/17/21 21:11 Buprenorphine/Naloxone (Buprenorphine/Naloxone 8/2 Mg Tab) 2.5 tab SL DAILY [facility] Stop: 03/18/21 08:59 Last Admin: 02/18/21 08:22 Dose: 2.5 tab Documented by: Buspirone HCl (Buspirone 7.5 Mg Tab) 15 mg PO BIDM [facility] Stop: 03/18/21 12:29 Last Admin: 02/18/21 08:23 Dose: 15 mg Documented by: Cetirizine HCl (Cetirizine Hcl 10 Mg Tablet) 10 mg PO DAILY PRN PRN Reason: Allergy Symptoms Stop: 03/18/21 12:03 Clonidine HCl (Clonidine Hcl 0.1 Mg Tab) 0.05 mg PO TID [facility] Stop: 03/20/21 13:59 Docusate Sodium (Docusate Sodium 100 Mg Cap) 100 mg PO BID [facility] Stop: 03/18/21 12:29 Last Admin: 02/18/21 08:23 Dose: 100 mg Documented by: Fluoxetine HCl (Fluoxetine Hcl 20 Mg Cap) 60 mg PO QAM [facility] Stop: 03/18/21 12:29 Last Admin: 02/18/21 08:23 Dose: 60 mg Documented by: Gabapentin (Gabapentin 100 Mg Cap) 100 mg PO TID [facility] Stop: 03/20/21 13:59 Hydroxyzine HCl (Hydroxyzine Hcl 25 Mg Tab) 50 mg PO HSZ PRN PRN Reason: Insomnia Stop: 03/17/21 21:11 Hydroxyzine HCl (Hydroxyzine Hcl 25 Mg Tab) 25 mg PO Q4H PRN PRN Reason: Anxiety Stop: 03/17/21 21:11 Last Admin: 02/18/21 11:24 Dose: 25 mg Documented by: Lurasidone HCl (Lurasidone Hcl 40 Mg Tab) 40 mg PO DAILYBD [facility] Stop: 03/18/21 17:14 Last Admin: 02/17/21 17:14 Dose: 40 mg Documented by: Magnesium Hydroxide (Magnesium Hydroxide Susp 30 Ml Udc) 30 ml PO DAILY PRN PRN Reason: Constipation Stop: 03/17/21 21:11 Last Admin: 02/17/21 20:25 Dose: 30 ml Documented by: Miscellaneous (Remove Nicoderm Patch) 1 ea N/A DAILY@0859 [facility] Stop: 03/18/21 08:58 Last Admin: 02/18/21 08:21 Dose: Not Given Documented by: Multivitamins (Multivitamin Tab) 1 tab PO QAM [facility] Stop: 03/19/21 14:59 Last Admin: 02/18/21 08:23 Dose: 1 tab Documented by: Nicotine (Nicotine 14 Mg/24 Hr Patch) 14 mg TD QAM [facility] Stop: 03/18/21 08:59 Last Admin: 02/18/21 08:24 Dose: Not Given Documented by: Nicotine Polacrilex (Nicotine Polacrilex 2 Mg Gum) 1 piece MT PRN PRN PRN Reason: Nicotine Withdrawal Stop: 03/17/21 21:11 Ondansetron HCl (Ondansetron 8mg Od Tab) 8 mg PO Q8H PRN PRN Reason: Nausea Stop: 03/19/21 17:52 Last Admin: 02/17/21 18:24 Dose: 8 mg Documented by: Sodium Chloride (Sodium Chloride 0.65% Na Soln 45 Ml ([place])) 1 - 2 sprays NA PRN PRN PRN Reason: Nasal Dryness/Congestion Stop: 03/17/21 21:11 Mental Health & Subst Abuse Tx Psychiatrist Name of Psychiatrist: Humphrey Su Psychiatrist's Date of Appointment with Psychiatrist: 03/08/21 Psychiatric Appointment Comment: [address], [address], [place] [address] Therapist Name of Therapist: Humphrey Su Therapist's Time of Therapist Appointment: On waitlist Therapy Appointment Comment: [address], [address], [place] [address] Supervisor Looping Name of Supervisor Looping: [facility] Administrative Case Management Phone Number for Supervisor Looping: [phone] Case Management Appointment Comment: [address], [address], [place] Post Discharge Appointments Primary Care Physician Name Of Family Doctor: BLAZE Ervin Primary Care Provider Appointment Comment: [address], [place], [place] Contact Information Discharge Discharge Address: [facility] [address] [facility] [place] [id number]
[2021-02-18] MEDS ORDERED: haloperidoL 5 MG TAB PO PRN (13:30)
[2021-02-18] MEDS ORDERED: BENZTROPINE MESYLATE 1 MG TAB PO PRN (13:31)
[2021-02-18] MEDS: GABAPENTIN 100 MG CAP PO SCH ×2 (13:40→20:25)
[2021-02-18] MEDS ORDERED: cloNIDine HCL 0.1 MG TAB PO SCH (14:00)
[2021-02-18] MEDS ORDERED: cloNIDine HCL 0.3 MG TAB PO SCH (14:00)
[2021-02-18] MEDS ORDERED: haloperidoL 5 MG TAB PO ONE (15:16)
[2021-02-18] MEDS: LURASIDONE HCL 40 MG TAB PO SCH (17:25)
[2021-02-18] MEDS: haloperidoL 5 MG TAB PO PRN (20:25)
[2021-02-18 23:47] LABS: Marijuana Quant, GCMS Urine 17 ng/mL (<5)
[2021-02-19] MEDS: hydrOXYzine HCl 25 MG TAB PO PRN ×3 (01:38→20:31)
[2021-02-19] MEDS: haloperidoL 5 MG TAB PO PRN (04:48)
[2021-02-19] MEDS: BUPRENORPHINE/NALOXONE 8/2 MG TAB SL SCH (07:46)
[2021-02-19] MEDS: busPIRone 7.5 MG TAB PO SCH ×2 (07:48→17:24)
[2021-02-19] MEDS: cloNIDine HCL 0.1 MG TAB PO SCH ×2 (07:48→20:28)
[2021-02-19] MEDS: FLUoxetine HCL 20 MG CAP PO SCH (07:49)
[2021-02-19] MEDS: GABAPENTIN 100 MG CAP PO SCH ×2 (07:49→20:29)
[2021-02-19] MEDS: DOCUSATE SODIUM 100 MG CAP PO SCH ×2 (07:49→20:28)
[2021-02-19] MEDS: MULTIVITAMIN TAB PO SCH (07:50)
[2021-02-19] MEDS: NICOTINE 14 MG/24 HR PATCH TD SCH (07:50)
--- NOTE | 2021-02-19 12:49 | Psychiatric Progress Note ---
Date of Service February 19, 2021 Impression / Recommendations Impression 40 yo female with a history of multiple inpatient psychiatric hospitalizations presents with mixed symptoms and inability to function after [facility] [place] [facility] on a disorderly conduct charge which is likely the result of ongoing mood instability given a recent ED visit. She is quite anxious and at times borders on disorganized but likely a factor of her borderline personality disorder rather than full blown zi so Prozac was continued unchanged. 02/19/21: calmer today after period of agitation that may be related to dissociation. (1) Bipolar II disorder with atypical features: (2) Anxiety: (3) Borderline personality disorder: 02/19/21: continue clonidine and Neurontin tapers, Haldol may be an appropriate prn following discharge. 02/18/21: clonidine taper as BP/P have normalized and patient desires to limit polypharmacy, taper Neurontin to 100 mg TID. Reviewed that will communicate her desire to further suboxone taper with her outpatient prescriber (was on 3 films daily for some time, now 2.5). Dulcolax for constipation. 02/17/21: continue current meds and treatment plan. Fasting labs reviewed. 02/16/21: The patient was admitted to the [facility] ([facility]) on q15 min checks (behavioral with suicide precautions) for safety. The patient will participate in group, recreational, and milieu therapies and will be offered additional individual and family sessions as clinically appropriate. Her hx of opiate dependence is in remission and suboxone dose was confirmed with PDMP and external med rec. She reports wanting to stop neurontin and suboxone as "just another addiction" and reviewed that the dosing of suboxone can be reviewed with her outpatient prescriber and is reduced slowly over time. She has already missed mulitple doses of Neurontin in the past week so will resume at 300 mg TID and adjust taper as needed. Prozac will continue as ordered as above. She hasn't resumed nortriptyline and doesn't want to take it anymore due to polypharmacy and perceived lack of benefit. Buspar was just increased to 15 mg BID (hardn't even started yet) so will start that here for anxiety. Her hypertension and tachy in ED were likely rebound due to missed doses of clonidine. BP and P are improved and will resume clonidine 0.1 mg TID scheduled and determine ongoing need vs switch to another BP med with input from medical. Risks/benefits/alternatives were reviewed re: antipsychotics for mood and/or psychosis. Discussion included but was not limited to metabolic side effects, risks of TD and suicidal thoughts. There were no abnormal motor movements at baseline. Fasting glucose and lipid panel ordered for baseline monitoring. She desires to retry Latuda as previously effective and formulary (Rexulti is not). Risk Factors Assessment Do You Have Access To A Gun?: No Protective Factors Assessment Employed: No Interval History Identifying Information SUSAN SAAVEDRA is a 40-year-old F from [place], has a history of multiple inpatient hospitalizations for Borderline PD and bipolar disorder, and was admitted on 02/15/21 21:12 on a 201 voluntary commitment for inability to function due to anxiety/mixed episode. Chief Complaint "I don't really remember yesterday, seems like this happens when I don't sleep well". Review of Systems Sleep Information Total Hours of Sleep: 0.5 Meal Information Percent Meal Consumed - Breakfast: 100 Percent Meal Consumed - Lunch: 25 Percent Meal Consumed - Dinner: 90 Subjective Subjective Patient was seen & assessed and interval progress reviewed with nursing and social work. Patient has required several doses of prn Haldol so presents as a bit flatter and slowed this am, didn't sleep well. Patient asked repeat questions from yesterday. When asked about paranoia around her menu and silverware she really couldn't relate why that was so upsetting. Apparently met with social welfare research worker after and expressed desire to return home with mother. Physical Exam Psychiatric Orientation: alert and oriented x 3 Apperance: + disheveled Eye Contact: + fair eye contact Motor Behavior: no abnormal motor movements Speech: normal rate/rhythm/volume of speech Affect: + depressed affect Mood: + depressed mood Thought Process: + circumstantial thought process Thought Content: reality based without delusions Suicidal Thoughts: denies suicidal thoughts, denies suicidal plan and denies suicidal intent Homicidal Thoughts: denies homicidal thoughts Hallucinations: no auditory hallucinations and no visual hallucinations Cognition: attention grossly intact and language grossly intact Estimated Intelligence: consistent with education level Insight: + limited insight Judgement: + limited judgement Vital Signs (Past 24 Hours) Last Vital Signs Temp 36.6 C 02/19/21 06:00 Pulse 72 02/19/21 06:11 Resp 18 02/19/21 06:00 BP 113/69 02/19/21 06:11 Pulse Ox 97 02/17/21 19:14 Results & Data ([facility]) Laboratory Results Laboratory Results - last 24 hr 02/15/21 17:50 U Marijuana THC Carboxy 17 H Drug Screen Comment SEE NOTE Current Inpatient Medications Current Inpatient Medications: Current Inpatient Medications Acetaminophen (Acetaminophen 325 Mg Tab) 650 mg PO Q4H PRN PRN Reason: Headache or Minor Fever Stop: 03/17/21 21:11 Last Admin: 02/16/21 22:34 Dose: 650 mg Documented by: Al Hydrox/Mg Hydrox/Simethicone (Aluminum/Magnesium Susp 30 Ml Udc) 30 ml PO Q4H PRN PRN Reason: GI Upset Stop: 03/17/21 21:11 Benztropine Mesylate (Benztropine Mesylate 1 Mg Tab) 1 mg PO Q6 PRN PRN Reason: muscle spasm Stop: 03/20/21 13:30 Bismuth Subsalicylate (Bismuth Subsalicylate Liqd 236 Ml) 15 ml PO PRN PRN PRN Reason: Loose Stool Stop: 03/17/21 21:11 Buprenorphine/Naloxone (Buprenorphine/Naloxone 8/2 Mg Tab) 2.5 tab SL DAILY COUNTS INCLUDE 234 BEDS AT THE [facility] Stop: 03/18/21 08:59 Last Admin: 02/19/21 07:46 Dose: 2.5 tab Documented by: Buspirone HCl (Buspirone 7.5 Mg Tab) 15 mg PO BIDM COUNTS INCLUDE 234 BEDS AT THE [facility] Stop: 03/18/21 12:29 Last Admin: 02/19/21 07:48 Dose: 15 mg Documented by: Cetirizine HCl (Cetirizine Hcl 10 Mg Tablet) 10 mg PO DAILY PRN PRN Reason: Allergy Symptoms Stop: 03/18/21 12:03 Clonidine HCl (Clonidine Hcl 0.1 Mg Tab) 0.05 mg PO TID COUNTS INCLUDE 234 BEDS AT THE [facility] Stop: 03/20/21 13:59 Last Admin: 02/19/21 07:48 Dose: 0.05 mg Documented by: Docusate Sodium (Docusate Sodium 100 Mg Cap) 100 mg PO BID COUNTS INCLUDE 234 BEDS AT THE [facility] Stop: 03/18/21 12:29 Last Admin: 02/19/21 07:49 Dose: 100 mg Documented by: Fluoxetine HCl (Fluoxetine Hcl 20 Mg Cap) 60 mg PO QAM COUNTS INCLUDE 234 BEDS AT THE [facility] Stop: 03/18/21 12:29 Last Admin: 02/19/21 07:49 Dose: 60 mg Documented by: Gabapentin (Gabapentin 100 Mg Cap) 100 mg PO TID NELSON Stop: 03/20/21 13:59 Last Admin: 02/19/21 07:49 Dose: 100 mg Documented by: Haloperidol (Haloperidol 5 Mg Tab) 10 mg PO Q8 PRN PRN Reason: Anxiety/Agitation Stop: 03/20/21 13:29 Last Admin: 02/19/21 04:48 Dose: 10 mg Documented by: Hydroxyzine HCl (Hydroxyzine Hcl 25 Mg Tab) 50 mg PO HSZ PRN PRN Reason: Insomnia Stop: 03/17/21 21:11 Last Admin: 02/19/21 01:38 Dose: 50 mg Documented by: Hydroxyzine HCl (Hydroxyzine Hcl 25 Mg Tab) 25 mg PO Q4H PRN PRN Reason: Anxiety Stop: 03/17/21 21:11 Last Admin: 02/18/21 19:13 Dose: 25 mg Documented by: Lurasidone HCl (Lurasidone Hcl 40 Mg Tab) 40 mg PO DAILYBD COUNTS INCLUDE 234 BEDS AT THE [facility] Stop: 03/18/21 17:14 Last Admin: 02/18/21 17:25 Dose: 40 mg Documented by: Magnesium Hydroxide (Magnesium Hydroxide Susp 30 Ml Udc) 30 ml PO DAILY PRN PRN Reason: Constipation Stop: 03/17/21 21:11 Last Admin: 02/17/21 20:25 Dose: 30 ml Documented by: Miscellaneous (Remove Nicoderm Patch) 1 ea N/A DAILY@0859 COUNTS INCLUDE 234 BEDS AT THE [facility] Stop: 03/18/21 08:58 Last Admin: 02/19/21 07:50 Dose: Not Given Documented by: Multivitamins (Multivitamin Tab) 1 tab PO QAM COUNTS INCLUDE 234 BEDS AT THE [facility] Stop: 03/19/21 14:59 Last Admin: 02/19/21 07:50 Dose: 1 tab Documented by: Nicotine (Nicotine 14 Mg/24 Hr Patch) 14 mg TD QAM COUNTS INCLUDE 234 BEDS AT THE [facility] Stop: 03/18/21 08:59 Last Admin: 02/19/21 07:50 Dose: Not Given Documented by: Nicotine Polacrilex (Nicotine Polacrilex 2 Mg Gum) 1 piece MT PRN PRN PRN Reason: Nicotine Withdrawal Stop: 03/17/21 21:11 Ondansetron HCl (Ondansetron 8mg Od Tab) 8 mg PO Q8H PRN PRN Reason: Nausea Stop: 03/19/21 17:52 Last Admin: 02/17/21 18:24 Dose: 8 mg Documented by: Sodium Chloride (Sodium Chloride 0.65% Na Soln 45 Ml (Ector)) 1 - 2 sprays NA PRN PRN PRN Reason: Nasal Dryness/Congestion Stop: 03/17/21 21:11 Mental Health & Subst Abuse Tx Psychiatrist Name of Psychiatrist: Humphrey Su Psychiatrist's Date of Appointment with Psychiatrist: 03/08/21 Psychiatric Appointment Comment: [address] [facility], [address], [place] [address] Therapist Name of Therapist: [place] Sharlene Therapist's Time of Therapist Appointment: On waitlist Therapy Appointment Comment: [address] [facility] [address] [facility], [address], [place] [address] Insulation Technician Name of Insulation Technician: [facility] Administrative Case Management Phone Number for Insulation Technician: [phone] Case Management Appointment Comment: [address] [facility], [address], [place] Post Discharge Appointments Primary Care Physician Name Of Family Doctor: BLAZE Ervin Primary Care Provider Appointment Comment: [address], [place], [place] Contact Information Discharge Discharge Address: [facility] Betty Quezada, [address] [place], [place] [id number]
[2021-02-19] MEDS: LURASIDONE HCL 40 MG TAB PO SCH (17:24)
[2021-02-19] MEDS ORDERED: haloperidoL 5 MG TAB PO PRN (21:52)
[2021-02-20 06:19] VITALS: BP 133/86; TEMP 97.8
[2021-02-20] MEDS: busPIRone 7.5 MG TAB PO SCH (08:21)
[2021-02-20] MEDS: MULTIVITAMIN TAB PO SCH (08:22)
[2021-02-20] MEDS: DOCUSATE SODIUM 100 MG CAP PO SCH (08:22)
[2021-02-20] MEDS: GABAPENTIN 100 MG CAP PO SCH (08:22)
[2021-02-20] MEDS: FLUoxetine HCL 20 MG CAP PO SCH (08:23)
[2021-02-20] MEDS: cloNIDine HCL 0.1 MG TAB PO SCH (08:25)
[2021-02-20] MEDS: BUPRENORPHINE/NALOXONE 8/2 MG TAB SL SCH (08:26)
[2021-02-20] MEDS: NICOTINE 14 MG/24 HR PATCH TD SCH (09:51)
--- NOTE | 2021-02-20 12:49 | Discharge Summary ---
Date of Service February 20, 2021 History of Present Illness Patient was last treated on in 2018, had an admission to [facility] in 2019, otherwise stable with her outpatient care with [facility] and suboxone prescriber. She reports sober since 2017. Many of her dozen plus stays at [facility] have been precipitated by conflict with mother. Nancy was seen in ED <2 weeks ago for "stress" and safety planned home. Since that time her mood lability and anxiety has continued to increase and she was so loud yelling at mom outside the apartment that a neighbor called the police and she was picked up on a disorderly conduct charge. During her 5 days in prison until arraignment she reports not receiving her medication and "I'm sure that didn't help things". In the ED she was hyperverbal, hypertensive, restless with racing thoughts. She has not been sleeping well and can no longer manage simple household tasks. She is unable to cope with "my life" since released from prison. She reports losing 35 lbs rather rapidly. The patient was tearful and hyperventilating in the ED, unable to tolerate much interview this am as patient concerned that suboxone was pills, not film and said "I can't deal with this". Physical Exam Vital Signs (Past 24 Hours) Last Vital Signs Temp 36.6 C 02/20/21 06:14 Pulse 80 02/20/21 06:15 Resp 18 02/20/21 06:14 BP 133/86 02/20/21 06:15 Pulse Ox 97 02/17/21 19:14 See admission H&P and DOD summary. Principal Diagnosis Bipolar Affective Disorder Type II Psychiatric Data See daily stay summary. In short, safety was maintained and the patient was cooperative with care. Medication changes included taper to discontinuation of gabapentin and clonidine as well as initiation and titration of lurasidone and they tolerated this well. She had a phone call with her mother and social work and safety plan was completed prior to discharge. Day of Discharge Assessment Today the patient voices readiness for discharge. They note improvement in mood and anxiety. They deny thoughts of harm to self or others. Thoughts are organized and they are clinically improved from admission. There is no evidence of psychosis. They improved in the hospital with support and medication adjustments. They agree to take medications as prescribed and keep follow-up appointments. At the time of the discharge they are deemed to be stable and appropriate for outpatient level of care. They are not deemed to be at imminent risk of harm to self or others. They are aware of emergency and crisis services. Knows to call 911 or go to nearest emergency care center if in a crisis which cannot be handled as an outpatient. Transition of Care Transition Of Care Record: was reviewed with the patient Advance Directives Advance Directives Information Provided: No Advance Directives: No Mental Health Advance Directive: No Advance Directives on File: No Living Will: No Power of Winding Inspector: No Advance Directives Reason:: Declines as Mental Health Visit. 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) Previous Attempt: Yes Family History of Suicide: Yes Previous Psychiatric Hospitalization: Yes Hopelessness: No Protective Factors Assessment Employed: No Stable Relationships: Yes Supportive Family: Yes Good Rapport with Provider: Yes Discharge Data Lab Results 02/15/21 02/15/21 02/15/21 17:50 17:50 17:50 WBC RBC Hgb Hct MCV MCH MCHC RDW Std Deviation RDW Coeff of Eugene Plt Count MPV Immature Gran % (Auto) Neut % (Auto) Lymph % (Auto) [place] % (Auto) Eos % (Auto) Baso % (Auto) Neut # (Auto) Lymph # (Auto) [place] # (Auto) Eos # (Auto) Baso # (Auto) Immature Gran # (Auto) Sodium Potassium Chloride Carbon Dioxide Anion Gap BUN Creatinine Est Cr Clr Drug Dosing Est GFR ( Amer) Est GFR (Non-Af Amer) BUN/Creatinine Ratio Glucose Fasting Glucose Calcium Total Bilirubin AST ALT Alkaline Phosphatase Total Protein Albumin Globulin Albumin/Globulin Ratio Triglycerides Cholesterol LDL Cholesterol, Calc VLDL Cholesterol, Calc HDL Cholesterol Cholesterol/HDL Ratio TSH HCG, Qual Urine Color Dark Yellow Urine Appearance Clear Urine pH 5.5 Ur Specific Palmer 1.021 Urine Protein 1+ H Urine Glucose (UA) Negative Urine Ketones Negative Urine Blood Negative Urine Nitrite Negative Urine Bilirubin Negative Urine Urobilinogen Negative Ur Leukocyte Esterase Negative Urine WBC (Auto) 5-10 H Urine RBC (Auto) 0-4 U Hyaline Cast (Auto) 5-10 H U Epithel Cells (Auto) >30 H Urine Bacteria (Auto) 1+ H Calcium Oxalate Crystal Present A Urine Mucus Present A POC Ur Test Nasal Screen MRSA (PCR) Salicylates Urine Opiates Screen Neg Ur Methadone, Qual Neg Acetaminophen Urine Barbiturates Neg Ur Phencyclidine (PCP) Neg U Amphetamin/Meth Scrn Neg MDMA (Ecstasy) Screen Neg U Benzodiazepines Scrn Neg Ur Cocaine Metabolite Neg U Marijuana (THC) Screen Pos H U Marijuana THC Carboxy 17 H Drug Screen Comment SEE NOTE Ethyl Alcohol mg/dL SARS-CoV-2, RNA, NAAT 02/15/21 02/15/21 02/15/21 17:55 18:02 18:02 WBC 15.66 H RBC 5.25 Hgb 15.3 Hct 45.2 MCV 86.1 MCH 29.1 MCHC 33.8 RDW Std Deviation 41.2 RDW Coeff of Eugene 13.1 Plt Count 314 MPV 10.5 H Immature Gran % (Auto) 0.3 Neut % (Auto) 70.8 Lymph % (Auto) 20.8 [place] % (Auto) 7.8 Eos % (Auto) 0.1 Baso % (Auto) 0.2 Neut # (Auto) 11.09 H Lymph # (Auto) 3.26 [place] # (Auto) 1.22 H Eos # (Auto) 0.02 Baso # (Auto) 0.03 Immature Gran # (Auto) 0.04 H Sodium Potassium Chloride Carbon Dioxide Anion Gap BUN Creatinine Est Cr Clr Drug Dosing Est GFR ( Amer) Est GFR (Non-Af Amer) BUN/Creatinine Ratio Glucose Fasting Glucose Calcium Total Bilirubin AST ALT Alkaline Phosphatase Total Protein Albumin Globulin Albumin/Globulin Ratio Triglycerides Cholesterol LDL Cholesterol, Calc VLDL Cholesterol, Calc HDL Cholesterol Cholesterol/HDL Ratio TSH HCG, Qual Negative Urine Color Urine Appearance Urine pH Ur Specific Palmer Urine Protein Urine Glucose (UA) Urine Ketones Urine Blood Urine Nitrite Urine Bilirubin Urine Urobilinogen Ur Leukocyte Esterase Urine WBC (Auto) Urine RBC (Auto) U Hyaline Cast (Auto) U Epithel Cells (Auto) Urine Bacteria (Auto) Calcium Oxalate Crystal Urine Mucus POC Ur Test Nasal Screen MRSA (PCR) Salicylates Urine Opiates Screen Ur Methadone, Qual Acetaminophen Urine Barbiturates Ur Phencyclidine (PCP) U Amphetamin/Meth Scrn MDMA (Ecstasy) Screen U Benzodiazepines Scrn Ur Cocaine Metabolite U Marijuana (THC) Screen U Marijuana THC Carboxy Drug Screen Comment Ethyl Alcohol mg/dL SARS-CoV-2, RNA, NAAT NEGATIVE 02/15/21 02/15/21 02/15/21 18:02 18:02 18:02 WBC RBC Hgb Hct MCV MCH MCHC RDW Std Deviation RDW Coeff of Eugene Plt Count MPV Immature Gran % (Auto) Neut % (Auto) Lymph % (Auto) [place] % (Auto) Eos % (Auto) Baso % (Auto) Neut # (Auto) Lymph # (Auto) [place] # (Auto) Eos # (Auto) Baso # (Auto) Immature Gran # (Auto) Sodium 136 Potassium 3.7 Chloride 102 Carbon Dioxide 25 Anion Gap 10.0 BUN 13 Creatinine 0.97 Est Cr Clr Drug Dosing 87.8 Est GFR ( Amer) 84.7 Est GFR (Non-Af Amer) 73.1 BUN/Creatinine Ratio 13.7 Glucose 99 Fasting Glucose Calcium 10.6 H Total Bilirubin 0.6 AST 9 L ALT 25 Alkaline Phosphatase 80 Total Protein 9.0 H Albumin 4.6 Globulin 4.4 H Albumin/Globulin Ratio 1.0 Triglycerides Cholesterol LDL Cholesterol, Calc VLDL Cholesterol, Calc HDL Cholesterol Cholesterol/HDL Ratio TSH 1.190 HCG, Qual Urine Color Urine Appearance Urine pH Ur Specific Palmer Urine Protein Urine Glucose (UA) Urine Ketones Urine Blood Urine Nitrite Urine Bilirubin Urine Urobilinogen Ur Leukocyte Esterase Urine WBC (Auto) Urine RBC (Auto) U Hyaline Cast (Auto) U Epithel Cells (Auto) Urine Bacteria (Auto) Calcium Oxalate Crystal Urine Mucus POC Ur Test Nasal Screen MRSA (PCR) Salicylates < 1.7 L Urine Opiates Screen Ur Methadone, Qual Acetaminophen < 2 L Urine Barbiturates Ur Phencyclidine (PCP) U Amphetamin/Meth Scrn MDMA (Ecstasy) Screen U Benzodiazepines Scrn Ur Cocaine Metabolite U Marijuana (THC) Screen U Marijuana THC Carboxy Drug Screen Comment Ethyl Alcohol mg/dL < 3.0 SARS-CoV-2, RNA, NAAT 02/15/21 02/16/21 02/17/21 18:16 11:10 05:14 WBC RBC Hgb Hct MCV MCH MCHC RDW Std Deviation RDW Coeff of Eugene Plt Count MPV Immature Gran % (Auto) Neut % (Auto) Lymph % (Auto) [place] % (Auto) Eos % (Auto) Baso % (Auto) Neut # (Auto) Lymph # (Auto) [place] # (Auto) Eos # (Auto) Baso # (Auto) Immature Gran # (Auto) Sodium Potassium Chloride Carbon Dioxide Anion Gap BUN Creatinine Est Cr Clr Drug Dosing Est GFR ( Amer) Est GFR (Non-Af Amer) BUN/Creatinine Ratio Glucose Fasting Glucose 91 Calcium Total Bilirubin AST ALT Alkaline Phosphatase Total Protein Albumin Globulin Albumin/Globulin Ratio Triglycerides 116 Cholesterol 105 LDL Cholesterol, Calc 47 VLDL Cholesterol, Calc 23 HDL Cholesterol 35 Cholesterol/HDL Ratio 3 TSH HCG, Qual Urine Color Urine Appearance Urine pH Ur Specific Palmer Urine Protein Urine Glucose (UA) Urine Ketones Urine Blood Urine Nitrite Urine Bilirubin Urine Urobilinogen Ur Leukocyte Esterase Urine WBC (Auto) Urine RBC (Auto) U Hyaline Cast (Auto) U Epithel Cells (Auto) Urine Bacteria (Auto) Calcium Oxalate Crystal Urine Mucus POC Ur Test NEG Nasal Screen MRSA (PCR) Negative Salicylates Urine Opiates Screen Ur Methadone, Qual Acetaminophen Urine Barbiturates Ur Phencyclidine (PCP) U Amphetamin/Meth Scrn MDMA (Ecstasy) Screen U Benzodiazepines Scrn Ur Cocaine Metabolite U Marijuana (THC) Screen U Marijuana THC Carboxy Drug Screen Comment Ethyl Alcohol mg/dL SARS-CoV-2, RNA, NAAT Hospital Course (1) Bipolar II disorder with atypical features: (2) Anxiety: (3) Borderline personality disorder: 02/20/21: She continues to tolerate the disocntinuation taper of gabapentin and clonidine. BP and HR remain stable and normal. Mood is stable and she's looking forward to discharge. Declines having haldol available as prn as she experienced a side effect of tongue swelling after taking it during this hospitalization. Reasonable especially given goal of minimizing medications and avoiding dual antipsychotic treatment when possible. She agrees with plan to increase dose to latuda 60mg with dinner starting tonight after discharge since she has been tolerating it well and wants to continue with titration with plan to follow up with her outpatient psychiatrist should any new side effects or symptoms from the higher dose emerge. 02/19/21: continue clonidine and Neurontin tapers, Haldol may be an appropriate prn following discharge. 02/18/21: clonidine taper as BP/P have normalized and patient desires to limit polypharmacy, taper Neurontin to 100 mg TID. Reviewed that will communicate her desire to further suboxone taper with her outpatient prescriber (was on 3 films daily for some time, now 2.5). Dulcolax for constipation. 02/17/21: continue current meds and treatment plan. Fasting labs reviewed. 02/16/21: [facility] on q15 min checks (behavioral with suicide precautions) for safety. The patient will participate in group, recreational, and milieu therapies and will be offered additional individual and family sessions as clinically appropriate. Her hx of opiate dependence is in remission and suboxone dose was confirmed with PDMP and external med rec. She reports wanting to stop neurontin and suboxone as "just another addiction" and reviewed that the dosing of suboxone can be reviewed with her outpatient prescriber and is reduced slowly over time. She has already missed mulitple doses of Neurontin in the past week so will resume at 300 mg TID and adjust taper as needed. Prozac will continue as ordered as above. She hasn't resumed nortriptyline and doesn't want to take it anymore due to polypharmacy and perceived lack of benefit. Buspar was just increased to 15 mg BID (hardn't even started yet) so will start that here for anxiety. Her hypertension and tachy in ED were likely rebound due to missed doses of clonidine. BP and P are improved and will resume clonidine 0.1 mg TID scheduled and determine ongoing need vs switch to another BP med with input from medical. Risks/benefits/alternatives were reviewed re: antipsychotics for mood and/or psychosis. Discussion included but was not limited to metabolic side effects, risks of TD and suicidal thoughts. There were no abnormal motor movements at baseline. Fasting glucose and lipid panel ordered for baseline monitoring. She desires to retry Latuda as previously effective and formulary (Rexulti is not). Mental Health & Subst Abuse Tx Psychiatrist Name of Psychiatrist: Humphrey Cohen Psychiatrist's Date of Appointment with Psychiatrist: 03/08/21 Time of Appointment with Psychiatrist: 2:40 p.m. Psychiatric Appointment Comment: [address], [address], [place] [address] Therapist Name of Therapist: Humphrey Su Therapist's Time of Therapist Appointment: On waitlist Therapy Appointment Comment: [address], [address], [place] [address] Manager Biostatistics Name of Manager Biostatistics: [facility] Administrative Case Management Phone Number for Manager Biostatistics: [phone] Case Management Appointment Comment: [address], [address], [place] Post Discharge Appointments Primary Care Physician Name Of Family Doctor: [facility] Date of Appointment with PCP: 03/03/21 Time of Appointment with PCP: 11:20 a.m. Provider Appointment Comment[facility] [address] [facility] [place] Other #1: Name of Aftercare Appointment: [facility] (Suboxone) Phone Number of Aftercare Appointment: [phone] Date of Aftercare Appointment: 02/22/21 Time of Aftercare Appointment: 3:00 p.m. Aftercare Appointment Comment: [address], [place] Contact Information Discharge Discharge Address: [address] [place] [id number] Discharge Plan Discharge Items Patient Disposition: Home - Self-Care Reason For Visit: BIPOLAR Affective DISORDER Type II Discharge Diagnosis: Bipolar Affective Disorder Type II Condition on Discharge: Good Activity: Resume your previous activity Non-emergency contact: Primary Care Provider and Psychiatrist Call non-emergency contact if: you have any medication questions and your symptoms worsen Follow-up/Referrals: Srinivas Flores MD [Primary Care Provider] - Diet: Regular Addtl Attending Provider Instructions: SPECIAL CARE INSTRUCTIONS: 1. Follow through with your scheduled aftercare appointments. If unable to keep an appointment, please call to reschedule. 2. Take your medication only as prescribed. Medication should not be changed or stopped without the approval of your doctor. In the event of worsening symptoms or concerns about side effects, contact your doctor immediately. 3. Utilize new healthy coping skills, anger management skills, and stress management skills learned during your hospitalization. Journal feelings and process them with a support person. Identify stressors or situations that may result in relapse, deterioration or inappropriate behaviors and develop a plan to deal with those issues. 4. If your coping skills are ineffective and you are in crisis, contact your outpatient providers for direction. If unable to reach your providers, please call the [facility] CRISIS LINE AT , go to the [facility] walk-in center at [address], [address], [place], or go to the closest Emergency Room. 5. Avoid alcohol and un-prescribed drugs. 6. You have been provided with the Mental Health Advance Directives Pamphlet for your review. 7. Your condition is stable for discharge to outpatient level of care, but recovery is an ongoing process. Ifthoughts to harm yourself or others return, follow the safety plan developed during your stay. Planning for a safe return home includes securing weapons. Our treatment team recommends weaponsbe removed from the home until your outpatient provider reassesses your progress. In rare cases where the items themselvescannot be removed, guns and ammunitionshould be secured separatelyand keys stored by a reliable personoutside of the home. If you were admitted on an involuntary commitment, the police or other legal authorities may be involved in this process. AFTERCARE APPOINTMENTS: * Please call your insurance company prior to your scheduled appointment to confirm your aftercare providers are covered. Take your insurance information to your appointments. WHO TO CALL AND WHEN: Medical Emergencies: For questions or emergencies related to your hospital stay, please contact the Inpatient Behavioral Health Unit at [phone]. A preventive maintenance coordinator is on-call 15/10 for the Behavioral Health Unit for emergencies At any time you feel your situation is an emergency, you may also call 911 immediately. Pending Studies at Discharge: No Stand-Alone Forms: My [facility], Smoking Cessation Medications and DC Order Prescriptions: New lurasidone 60 mg tablet 60 mg PO DAILY Qty: 30 RF: 0 lurasidone 60 mg tablet 60 mg PO PM 30 Days Qty: 30 RF: 0 Continued docusate sodium [Dulcolax Stool Softener (dss)] 100 mg capsule 100 mg PO BID Qty: 60 RF: 5 fluoxetine 20 mg capsule 20 mg PO DAILY RF: 0 fluoxetine 40 mg capsule 40 mg PO DAILY RF: 0 buprenorphine-naloxone 8-2 mg film 2.5 film sublingual DAILY RF: 0 cetirizine [Zyrtec] 10 mg tablet 10 mg PO DAILY PRN (Reason: Allergy Symptoms) RF: 0 buspirone 15 mg Tablet 15 mg PO BID RF: 0 Discontinued gabapentin 600 mg tablet 600 mg PO QID Qty: 360 RF: 0 clonidine HCl 0.1 mg tablet 0.1 mg PO TID RF: 0 nortriptyline 50 mg capsule 50 mg PO HS RF: 0 Discharge Orders: Discharge Order (Routine); Ordered 02/20/21 Ordered By: Sushila Lezama Admission Data Admit Date/Time: 02/15/21 21:12 Attending Provider: Leighann Oneal Admit Provider: Leighann Oneal Primary Care Provider: Srinivas Flores V. Other Interventions: PSY Interdisciplinary Discharge Planning Last Done: 02/20/21 11:01 Coding Level of Care Code 35510 D/C day mgmt > 30 min Diagnoses Bipolar II disorder with atypical features F31.81 Anxiety F41.9 Borderline personality disorder F60.3 Time Spent (min) 40
[2021-02-20 13:14] VITALS: PULSE 92
[2021-02-20] MEDS ORDERED: LURASIDONE HCL 40 MG TAB PO SCH (17:15)
== END 2021-02-20 14:45 | disposition home or self-care (01) | DRG 885 ==
LOC: ED 16:36 → 3S 21:12 → ED 21:23